=== PATIENT | male | born 1960 | race African-American/Black ===

== ENCOUNTER 2018-03-21 12:30 | Emergency (ER) | payer MEDICAID ==
[~2018-03-21] VITALS: Ht 188 cm; Wt 104.8 kg
[2018-03-21 12:43] VITALS: BP 143/97
[2018-03-21] MEDS ORDERED: ASPirin 81 mg TAB PO ONE (13:30)
[2018-03-21 14:43] LABS: Basophils # (auto) 0 uL; Mean Corpuscular Volume 92.6 fL (80.0-100.0); Monocytes # (auto) 0.6 uL
[2018-03-21 14:45] LABS: Basophils % (auto) 0.8 % (0.0-2.0); Eosinophils # (auto) 0.3 uL; Eosinophils % (auto) 5.6 % (0.0-7.0); Lymphocytes # (auto) 1.6 uL; Lymphocytes % (auto) 32.9 % (10.0-50.0); Mean Corpuscular Hemoglobin 29.4 pg (28.0-32.0); Mean Corpuscular Hgb Conc. 31.8 g/dL (32.0-36.0); Monocytes % (auto) 12.5 % (0.0-12.0); Neutrophils # (auto) 2.3 uL; Neutrophils % (auto) 48.2 % (37.0-80.0); Nucleated Red Blood Cells % 0.4 %; Platelet Count (auto) 153 10^3/uL (140-450); White Blood Cell 4.8 10^3/uL (4.4-10.8)
[2018-03-21 14:59] LABS: INR 0.99 (0.9-1.15); Prothrombin Time 10.6 sec (9.27-12.13)
[2018-03-21 15:18] LABS: Hematocrit 56.5 % (41.0-53.0)
[2018-03-21 16:45] LABS: Anion Gap 7 (5-15); Blood Urea Nitrogen 7 mg/dL (7-18); Carbon Dioxide 20 mmol/L (21-32); Chloride 108 mmol/L (98-107); Glucose 78 mg/dL (74-106); Potassium 4.3 mmol/L (3.5-5.1); Sodium 135 mmol/L (136-145)
[2018-03-21] MEDS ORDERED: IBUPROFEN 600 MG TAB PO ONE (16:45)
[2018-03-21 16:46] LABS: Alanine Aminotransferase 50 U/L (16-61); Alkaline Phosphatase 119 U/L (45-117); Aspartate Aminotransferase 38 U/L (15-37); BUN/Creatinine Ratio 7.1; Bilirubin, Total 0.3 mg/dL (0.2-1.0); Calcium 8.4 mg/dL (8.5-10.1); GFR African American 99 mL/min; GFR Non-African American 82 mL/min; Total Protein 7.7 g/dL (6.4-8.2)
[2018-03-21 16:47] LABS: Magnesium 2.1 mg/dL (1.6-2.6)
== END 2018-03-21 20:05 | disposition left against medical advice (07) ==
LOC: ER 12:30
DX: J20.9 Acute bronchitis, unspecified (principal); R07.9 Chest pain, unspecified; R79.89 Other specified abnormal findings of blood chemistry; I10 Essential (primary) hypertension; F17.210 Nicotine dependence, cigarettes, uncomplicated; Z53.29 Procedure and treatment not carried out because of patient's decision for other reasons
CPT/HCPCS: 36415; 71045; 80053; 83735; 83880; 84443; 84484; 85025; 85379; 85610; 85730; 93005; 94761

== ENCOUNTER 2018-04-04 12:07 | Emergency (ER) | payer MEDICAID ==
[~2018-04-04] VITALS: Ht 188 cm; Wt 104.8 kg
[2018-04-04 15:55] VITALS: BP 130/72
== END 2018-04-04 15:59 | disposition home or self-care (01) ==
LOC: ER 12:16
DX: K40.90 Unilateral inguinal hernia, without obstruction or gangrene, not specified as recurrent (principal); E78.5 Hyperlipidemia, unspecified; I10 Essential (primary) hypertension; F17.210 Nicotine dependence, cigarettes, uncomplicated; F12.90 Cannabis use, unspecified, uncomplicated; I25.2 Old myocardial infarction; Z86.73 Personal history of transient ischemic attack (TIA), and cerebral infarction without residual deficits
CPT/HCPCS: 76870; 93005

== ENCOUNTER 2018-05-31 15:41 | Emergency (ER) | payer MEDICAID ==
[~2018-05-31] VITALS: Ht 188 cm; Wt 103.4 kg
[2018-05-31 15:50] VITALS: BP 137/97
[2018-05-31 16:43] LABS: Mean Corpuscular Hemoglobin 29.4 pg (28.0-32.0); Mean Corpuscular Volume 90.1 fL (80.0-100.0); Monocytes # (auto) 0.4 uL; Red Cell Distribution Width 14.1 % (11.8-14.3); White Blood Cell 3.3 10^3/uL (4.4-10.8)
[2018-05-31 16:44] LABS: Basophils # (auto) 0.3 uL; Basophils % (auto) 8.4 % (0.0-2.0); Eosinophils # (auto) 0.2 uL; Eosinophils % (auto) 5.1 % (0.0-7.0); Hematocrit 54.3 % (41.0-53.0); Hemoglobin 17.7 g/dL (13.5-17.5); Lymphocytes # (auto) 1.5 uL; Lymphocytes % (auto) 44.5 % (10.0-50.0); Mean Corpuscular Hgb Conc. 32.7 g/dL (32.0-36.0); Nucleated Red Blood Cells % 0.7 %; Platelet Count (auto) 176 10^3/uL (140-450); Red Blood Cells 6.03 10^6/uL (4.5-5.90)
[2018-05-31 16:57] LABS: INR 1.06 (0.9-1.15); Partial Thromboplastin Time 31.2 sec (23.78-33.04); Prothrombin Time 11.3 sec (9.27-12.13)
== END 2018-06-01 01:24 | disposition home or self-care (01) ==
LOC: ER 15:41
DX: R07.89 Other chest pain (principal); E78.5 Hyperlipidemia, unspecified; I10 Essential (primary) hypertension; I25.2 Old myocardial infarction; I25.10 Atherosclerotic heart disease of native coronary artery without angina pectoris; F17.210 Nicotine dependence, cigarettes, uncomplicated; F12.10 Cannabis abuse, uncomplicated; Z88.1 Allergy status to other antibiotic agents
CPT/HCPCS: 36415; 71046; 84484; 85025; 85610; 85730; 93005

== ENCOUNTER 2018-06-21 02:44 | Emergency (ER) | payer MEDICAID ==
[~2018-06-21] VITALS: Ht 188 cm; Wt 103.4 kg
[2018-06-21 06:52] VITALS: BP 137/91
[2018-06-21] MEDS ORDERED: KETOROLAC TROMETH 60MG/2ML VIAL IM ONE (07:00)
[2018-06-21] MEDS ORDERED: METHOCARBAMOL 500 MG TAB PO ONE (07:00)
== END 2018-06-21 07:26 | disposition home or self-care (01) ==
LOC: ER 02:46
DX: M25.511 Pain in right shoulder (principal); I25.10 Atherosclerotic heart disease of native coronary artery without angina pectoris; J44.9 Chronic obstructive pulmonary disease, unspecified; E78.5 Hyperlipidemia, unspecified; I10 Essential (primary) hypertension; I25.2 Old myocardial infarction; F17.210 Nicotine dependence, cigarettes, uncomplicated; F12.90 Cannabis use, unspecified, uncomplicated; Z88.1 Allergy status to other antibiotic agents; Z88.5 Allergy status to narcotic agent; V83.5XXA Driver of special industrial vehicle injured in nontraffic accident, initial encounter; Y93.89 Activity, other specified; Y99.8 Other external cause status; Y92.89 Other specified places as the place of occurrence of the external cause
CPT/HCPCS: 70450; 71045; 71250; 72125; 73030; 73080; 73120; 74176; 93005; 96372; 99284; J1885

== ENCOUNTER 2018-08-02 09:09 | Emergency (ER) | payer MEDICAID ==
[~2018-08-02] VITALS: Ht 188 cm; Wt 99.8 kg
[2018-08-02 10:33] LABS: Basophils # (auto) 0 uL; Basophils % (auto) 0.2 % (0.0-2.0); Eosinophils # (auto) 0.1 uL; Eosinophils % (auto) 1.9 % (0.0-7.0); Hematocrit 51.6 % (41.0-53.0); Hemoglobin 17.1 g/dL (13.5-17.5); Lymphocytes # (auto) 1.2 uL; Mean Corpuscular Hemoglobin 29.7 pg (28.0-32.0); Mean Corpuscular Hgb Conc. 33.1 g/dL (32.0-36.0); Mean Corpuscular Volume 89.8 fL (80.0-100.0); Monocytes # (auto) 0.6 uL; Monocytes % (auto) 13.9 % (0.0-12.0); Neutrophils # (auto) 2.5 uL; Nucleated Red Blood Cells % 0.7 %; Platelet Count (auto) 189 10^3/uL (140-450); Red Blood Cells 5.75 10^6/uL (4.5-5.90); Red Cell Distribution Width 13.7 % (11.8-14.3); White Blood Cell 4.4 10^3/uL (4.4-10.8)
[2018-08-02 11:20] LABS: Anion Gap 9 (5-15); BUN/Creatinine Ratio 11.8; Blood Urea Nitrogen 12 mg/dL (7-18); Carbon Dioxide 22 mmol/L (21-32); Chloride 103 mmol/L (98-107); GFR African American 96 mL/min; GFR Non-African American 79 mL/min; Glucose 92 mg/dL (74-106); Potassium 3.7 mmol/L (3.5-5.1); Sodium 134 mmol/L (136-145)
[2018-08-02 11:21] LABS: Alanine Aminotransferase 43 U/L (16-61); Albumin 3.4 g/dL (3.4-5.0); Alkaline Phosphatase 97 U/L (45-117); Aspartate Aminotransferase 30 U/L (15-37); Bilirubin, Total 0.4 mg/dL (0.2-1.0); Calcium 8.8 mg/dL (8.5-10.1); Total Protein 8.1 g/dL (6.4-8.2)
[2018-08-02 15:39] VITALS: BP 121/73
== END 2018-08-02 15:46 | disposition home or self-care (01) ==
LOC: ER 09:09
DX: J40 Bronchitis, not specified as acute or chronic (principal); J44.9 Chronic obstructive pulmonary disease, unspecified; E78.5 Hyperlipidemia, unspecified; I10 Essential (primary) hypertension; I25.2 Old myocardial infarction; F17.210 Nicotine dependence, cigarettes, uncomplicated; F12.10 Cannabis abuse, uncomplicated; I25.10 Atherosclerotic heart disease of native coronary artery without angina pectoris
CPT/HCPCS: 36415; 71046; 80053; 84484; 85025; 93005

== ENCOUNTER 2018-09-23 04:22 | Emergency (ER) | payer MEDICAID, OTHER ==
[~2018-09-23] VITALS: Ht 188 cm; Wt 99.3 kg
[2018-09-23 08:07] LABS: Basophils # (auto) 0 uL; Basophils % (auto) 0.6 % (0.0-2.0); Eosinophils # (auto) 0.1 uL; Eosinophils % (auto) 2.7 % (0.0-7.0); Hematocrit 44.3 % (41.0-53.0); Hemoglobin 14.4 g/dL (13.5-17.5); Lymphocytes # (auto) 0.9 uL; Mean Corpuscular Hemoglobin 28.5 pg (28.0-32.0); Mean Corpuscular Hgb Conc. 32.4 g/dL (32.0-36.0); Mean Corpuscular Volume 87.9 fL (80.0-100.0); Monocytes # (auto) 0.5 uL; Neutrophils # (auto) 2.4 uL; Neutrophils % (auto) 60.7 % (37.0-80.0); Nucleated Red Blood Cells % 0.1 %; Platelet Count (auto) 216 10^3/uL (140-450); Red Blood Cells 5.05 10^6/uL (4.5-5.90); Red Cell Distribution Width 13.5 % (11.8-14.3); White Blood Cell 3.9 10^3/uL (4.4-10.8)
[2018-09-23] MEDS ORDERED: SODIUM CHLORIDE 0.9% 1,000 ML IV ONE ×2 (08:13)
[2018-09-23] MEDS ORDERED: cefTRIAXone 1GM/50ML D5W 50 ML IV ONE (08:15)
[2018-09-23] MEDS ORDERED: CLINDAMYCIN 900MG IV 50 ML IV ONE (08:15)
[2018-09-23] MEDS ORDERED: KETOROLAC TROMETH 30 MG/ML 1ML VIAL ONE (08:30)
[2018-09-23 09:31] VITALS: BP 155/95
== END 2018-09-23 09:48 | disposition short-term general hospital (02) ==
LOC: ER 04:26
DX: L02.413 Cutaneous abscess of right upper limb (principal); J44.9 Chronic obstructive pulmonary disease, unspecified; E78.5 Hyperlipidemia, unspecified; I10 Essential (primary) hypertension; I25.2 Old myocardial infarction; F17.210 Nicotine dependence, cigarettes, uncomplicated; F12.10 Cannabis abuse, uncomplicated; F15.10 Other stimulant abuse, uncomplicated; F11.10 Opioid abuse, uncomplicated; Z88.6 Allergy status to analgesic agent; Z88.1 Allergy status to other antibiotic agents
CPT/HCPCS: 36415; 71045; 73200; 83605; 85025; 87040; 96365; 96368; 99285; J0696; J1885; J3490

== ENCOUNTER 2018-11-16 16:22 | Inpatient (IN) | payer MEDICAID, OTHER | END 2018-11-18 14:39 | disposition left against medical advice (07) | LOC: TELE-CENTR 11-17 04:52 → ER 16:22 → TELE 16:23 | DX: A41.9 Sepsis, unspecified organism (principal); J96.00 Acute respiratory failure, unspecified whether with hypoxia or hypercapnia; J69.0 Pneumonitis due to inhalation of food and vomit; G93.41 Metabolic encephalopathy; I11.0 Hypertensive heart disease with heart failure; I50.9 Heart failure, unspecified; F19.10 Other psychoactive substance abuse, uncomplicated; E87.6 Hypokalemia; N39.0 Urinary tract infection, site not specified; E78.5 Hyperlipidemia, unspecified; I25.10 Atherosclerotic heart disease of native coronary artery without angina pectoris; J44.0 Chronic obstructive pulmonary disease with (acute) lower respiratory infection ==

== ENCOUNTER 2019-01-09 08:51 | Emergency (ER) | payer MEDICAID ==
[~2019-01-09] VITALS: Ht 188 cm; Wt 89.8 kg
[2019-01-09 10:00] LABS: Basophils # (auto) 0 uL; Eosinophils # (auto) 0.2 uL; Eosinophils % (auto) 6.7 % (0.0-7.0); Hematocrit 40.2 % (41.0-53.0); Hemoglobin 13.2 g/dL (13.5-17.5); Lymphocytes # (auto) 0.9 uL; Lymphocytes % (auto) 30.4 % (10.0-50.0); Mean Corpuscular Hemoglobin 28.6 pg (28.0-32.0); Mean Corpuscular Hgb Conc. 32.8 g/dL (32.0-36.0); Mean Corpuscular Volume 87.2 fL (80.0-100.0); Monocytes # (auto) 0.3 uL; Monocytes % (auto) 8.6 % (0.0-12.0); Neutrophils # (auto) 1.6 uL; Neutrophils % (auto) 53.3 % (37.0-80.0); Nucleated Red Blood Cells % 0.1 %; Platelet Count (auto) 185 10^3/uL (140-450); Red Blood Cells 4.61 10^6/uL (4.5-5.90); Red Cell Distribution Width 13.9 % (11.8-14.3)
[2019-01-09] MEDS ORDERED: ASPirin 81 mg TAB PO ONE (10:00)
[2019-01-09 10:20] LABS: INR 1.03 (0.9-1.15)
[2019-01-09 10:21] LABS: Alanine Aminotransferase 41 U/L (16-61); Albumin 3.2 g/dL (3.4-5.0); Alkaline Phosphatase 116 U/L (45-117); Anion Gap 6 (5-15); Aspartate Aminotransferase 30 U/L (15-37); BUN/Creatinine Ratio 12.6; Bilirubin, Total 0.3 mg/dL (0.2-1.0); Blood Urea Nitrogen 12 mg/dL (7-18); Calcium 8.2 mg/dL (8.5-10.1); Carbon Dioxide 28 mmol/L (21-32); Chloride 106 mmol/L (98-107); GFR African American 104 mL/min; GFR Non-African American 86 mL/min; Glucose 88 mg/dL (74-106); Potassium 3.8 mmol/L (3.5-5.1); Sodium 140 mmol/L (136-145); Total Protein 7.2 g/dL (6.4-8.2)
[2019-01-09 11:54] VITALS: BP 133/82
== END 2019-01-09 12:30 | disposition home or self-care (01) ==
LOC: ER 08:51
DX: R07.89 Other chest pain (principal); J40 Bronchitis, not specified as acute or chronic; I11.0 Hypertensive heart disease with heart failure; I50.9 Heart failure, unspecified; J44.9 Chronic obstructive pulmonary disease, unspecified; E78.5 Hyperlipidemia, unspecified; R42 Dizziness and giddiness; I25.2 Old myocardial infarction; Z87.891 Personal history of nicotine dependence; Z88.1 Allergy status to other antibiotic agents; Z88.6 Allergy status to analgesic agent
CPT/HCPCS: 36415; 71046; 80053; 84484; 85025; 85610; 85730; 93005; 94761

== ENCOUNTER 2019-02-01 17:01 | Inpatient (IN) | payer MEDICAID ==
[~2019-02-01] VITALS: Ht 188 cm; Wt 82.4 kg
[2019-02-01] MEDS ORDERED: SODIUM CHLORIDE 0.9% 1,000 ML IVB ONE (17:31)
[2019-02-01] MEDS ORDERED: ASPirin-EC 81 mg tab PO ONE (17:45)
[2019-02-01 18:00] LABS: Basophils # (auto) 0 uL; Basophils % (auto) 0.4 % (0.0-2.0); Eosinophils # (auto) 0 uL; Eosinophils % (auto) 0.1 % (0.0-7.0); Hematocrit 40.1 % (41.0-53.0); Lymphocytes # (auto) 0.9 uL; Lymphocytes % (auto) 8.8 % (10.0-50.0); Mean Corpuscular Hemoglobin 28.4 pg (28.0-32.0); Mean Corpuscular Hgb Conc. 32.5 g/dL (32.0-36.0); Mean Corpuscular Volume 87.4 fL (80.0-100.0); Monocytes # (auto) 0.8 uL; Monocytes % (auto) 7.2 % (0.0-12.0); Neutrophils # (auto) 8.9 uL; Neutrophils % (auto) 83.5 % (37.0-80.0); Platelet Count (auto) 279 10^3/uL (140-450); Red Blood Cells 4.58 10^6/uL (4.5-5.90); Red Cell Distribution Width 13.7 % (11.8-14.3); White Blood Cell 10.6 10^3/uL (4.4-10.8)
[2019-02-01 18:10] LABS: INR 1.21 (0.9-1.15); Partial Thromboplastin Time 36.7 sec (23.64-32.05)
[2019-02-01 18:17] LABS: Alanine Aminotransferase 31 U/L (16-61); Albumin 2.9 g/dL (3.4-5.0); Anion Gap 5 (5-15); BUN/Creatinine Ratio 11.7; Blood Urea Nitrogen 12 mg/dL (7-18); Calcium 8.1 mg/dL (8.5-10.1); Carbon Dioxide 28 mmol/L (21-32); Chloride 100 mmol/L (98-107); GFR African American 94 mL/min; GFR Non-African American 78 mL/min; Glucose 94 mg/dL (74-106); Potassium 3.7 mmol/L (3.5-5.1); Sodium 133 mmol/L (136-145)
[2019-02-01 18:21] LABS: Alkaline Phosphatase 109 U/L (45-117); Aspartate Aminotransferase 22 U/L (15-37); Bilirubin, Total 0.6 mg/dL (0.2-1.0); Total Protein 7.4 g/dL (6.4-8.2)
[2019-02-01 19:33] LABS: Urine Bacteria FEW /hpf (None Seen); Urine Blood Negative /uL (Negative); Urine Mucus FEW (None Seen); Urine Specific Gravity 1.019 (1.001-1.035); Urine WBC 26 /hpf (0 - 3)
[2019-02-01 19:56] LABS: Alcohol, Urine < 3.0 mg/dL (0-5); Amphetamine Screen, Urine POSITIVE (NEGATIVE); Barbiturate Scree,Urine NEGATIVE (NEGATIVE); Benzodiazephine Screen, Urine NEGATIVE (NEGATIVE); Cannabinoid Screen, Urine POSITIVE (NEGATIVE); Cocaine Screen, Urine POSITIVE (NEGATIVE)
[2019-02-01 20:04] LABS: Opiate Scree,Urine POSITIVE (NEGATIVE); Phencyclidine Screen, Urine NEGATIVE (NEGATIVE)
[2019-02-01] MEDS: FAMOTIDINE 20 MG TAB PO SCH (22:00)
[2019-02-01] MEDS: ATORVASTATIN 20 MG TAB PO SCH (22:00)
[2019-02-01] MEDS ORDERED: ACETAMINOPHEN 325 MG TAB PO PRN (22:00)
[2019-02-01] MEDS ORDERED: MORPHINE SULF INJ 2 MG/ML SYRINGE 1ML IV PRN (22:00)
[2019-02-01] MEDS: CARVEDILOL 3.125 MG TAB PO SCH (22:00)
[2019-02-01] MEDS ORDERED: ONDANSETRON HCL 4 MG/2 ML VIAL IV PRN (22:00)
[2019-02-01] MEDS ORDERED: TEMAZEPAM 15 MG CAP PO PRN (22:00)
[2019-02-01] MEDS ORDERED: NITROGLYCERIN 0.4 MG SL TAB SL PRN (22:00)
[2019-02-02 01:17] LABS: BUN/Creatinine Ratio 13.6; Calcium 8.2 mg/dL (8.5-10.1); Potassium 3.9 mmol/L (3.5-5.1)
--- NOTE | 2019-02-02 08:05 | NUR ---
PATIENT ARRIVED TO UNIT PATIENT ASLEEP AROUSABLE BY NAME BUT FALLS BACK ASLEEP. REFUSING TO ANSWER ALL QUESTIONS AT THIS TIME. PATIENT DOESN'T APPEAR TO BE IN ANY DISTRESS OR DISCOMFORT. VITAL SIGN WITHIN NORMAL LIMITS AT THIS TIME. BED IN LOWEST LOCKED POSITION CALL LIGHT WITHIN REACH WILL CONTINUE TO MONITOR
[2019-02-02 10:04] VITALS: BP 133/79
[2019-02-02 11:29] VITALS: BP 133/79
[2019-02-02] MEDS ORDERED: ADENOSINE 76 MG in GIVE UN-DILUTED 0 ML IV ONE (11:30)
[2019-02-02 13:00] VITALS: BP 141/80
[2019-02-02] MEDS: ASPirin 81 mg TAB PO SCH (13:51)
[2019-02-02] MEDS: LISINOPRIL 10 MG TAB PO SCH (13:52)
[2019-02-02] MEDS: FAMOTIDINE 20 MG TAB PO SCH ×2 (13:52→21:34)
[2019-02-02] MEDS: CARVEDILOL 3.125 MG TAB PO SCH ×2 (13:52→21:35)
--- NOTE | 2019-02-02 14:08 | NUR ---
[facility] SWAB SENT
--- NOTE | 2019-02-02 14:12 | NUR ---
PAGED TWICE REGARDING METHADONE MEDICATION. AWAITING RESPONSE
--- NOTE | 2019-02-02 14:48 | NUR ---
TELE PSYCH MD CALLED [facility]STILLO PATIENT CLEARED, DOES NOT NEED 51/50 HOLD BUT NEEDS OUTPATIENT DETOX PROGRAM ONCE DISCHARGED.
[2019-02-02 17:00] VITALS: BP 123/73
[2019-02-02] MEDS ORDERED: METHADONE HCL 10 MG TAB PO ONE (17:15)
--- NOTE | 2019-02-02 19:40 | NUR ---
RT NOTE RT SAW PT FOR ABG ORDER. PT REFUSED ABG. RT EXPLAINED THE IMPORTANCE OF THE ABG, PT STILL REFUSED. PT SPO2 ON RA IS 97%, CR 72, RR 16. NO DISTRESS NOTED BY RT. PT DOES STATE THEY HAVE BEEN FEELING SOB. WILLIAM MEDELLIN WAS ADVISED OF PTS REFUSAL.
[2019-02-02] MEDS: ENOXAPARIN SOD 40 MG/0.4 ML SYRINGE SC SCH (19:59)
[2019-02-02] MEDS: cefTRIAXone 1GM/50ML D5W 50 ML IV SCH (19:59)
--- NOTE | 2019-02-02 20:20 | NUR ---
RECEIVE IN BED NO VOICED COMPLAINTS NO SOB REFUSE ABG DRAW
[2019-02-02] MEDS: ATORVASTATIN 20 MG TAB PO SCH (21:34)
[2019-02-02 22:00] VITALS: BP 115/71
[2019-02-03 05:00] VITALS: BP 106/70
--- NOTE | 2019-02-03 06:43 | NUR ---
LT EJ SALINE LOCK DISLODGED IN BED ANGIOCATH TIP IS INTACT REFUSE LAB DRAW
[2019-02-03 09:00] VITALS: BP 125/75
[2019-02-03] MEDS: cefTRIAXone 1GM/50ML D5W 50 ML IV SCH (09:00)
[2019-02-03] MEDS ORDERED: METHADONE HCL 10 MG TAB PO SCH ×2 (10:00)
[2019-02-03] MEDS: METHADONE HCL 10 MG TAB PO SCH (10:12)
[2019-02-03] MEDS: ASPirin 81 mg TAB PO SCH (10:13)
[2019-02-03] MEDS: CARVEDILOL 3.125 MG TAB PO SCH ×2 (10:13→21:32)
[2019-02-03] MEDS: LISINOPRIL 10 MG TAB PO SCH (10:13)
[2019-02-03] MEDS: ENOXAPARIN SOD 40 MG/0.4 ML SYRINGE SC SCH (10:14)
[2019-02-03] MEDS: FAMOTIDINE 20 MG TAB PO SCH ×2 (10:14→21:32)
[2019-02-03 13:00] VITALS: BP 109/69
--- NOTE | 2019-02-03 13:19 | NUR ---
UNABLE TO OBTAIN NEW IV ACCESS PAGED FOR POSSIBLE MIDLINE INSERTION AWAITING RESPONSE
--- NOTE | 2019-02-03 15:30 | NUR ---
LAB CALLED TO VERIFY IF LABS WERE DRAWN. PER PATIENT SOME ONE CAME AND RADHA LABS. PER NIGHT NURSE AND LAB PATIENT REFUSED LABS.
--- NOTE | 2019-02-03 16:27 | NUR ---
assessment Per consult please provide patient to detox program/methadone clinic. Patient was not in his room at this time. I have left resources for [facility] methadone clinic, [facility] and other detox facilities on patients bedside table and notified patients bedside nurse Lucille THOMAS. Per Lucille she make sure patient gets resources. Addendum: 02/03/19 at 1629 by Aurora Carter Amended: Links added.
[2019-02-03 17:00] VITALS: BP 143/84
--- NOTE | 2019-02-03 17:00 | NUR ---
PATIENT RECEIVED INFORMATION ON DETOX PROGRAM
[2019-02-03] MEDS ORDERED: CLOPIDOGREL 300 MG TAB PO ONE (17:30)
[2019-02-03 17:59] LABS: Basophils # (auto) 0 uL; Basophils % (auto) 1.2 % (0.0-2.0); Eosinophils # (auto) 0.1 uL; Eosinophils % (auto) 5.9 % (0.0-7.0); Hematocrit 44.2 % (41.0-53.0); Hemoglobin 13.9 g/dL (13.5-17.5); Lymphocytes # (auto) 0.9 uL; Mean Corpuscular Hgb Conc. 31.5 g/dL (32.0-36.0); Mean Corpuscular Volume 89.1 fL (80.0-100.0); Monocytes # (auto) 0.3 uL; Monocytes % (auto) 12.2 % (0.0-12.0); Neutrophils # (auto) 1.2 uL; Neutrophils % (auto) 46.7 % (37.0-80.0); Nucleated Red Blood Cells % 0.4 %; Platelet Count (auto) 255 10^3/uL (140-450); Red Blood Cells 4.96 10^6/uL (4.5-5.90); Red Cell Distribution Width 13.9 % (11.8-14.3); White Blood Cell 2.5 10^3/uL (4.4-10.8)
[2019-02-03 18:09] LABS: Calcium 9.2 mg/dL (8.5-10.1); Potassium 4.5 mmol/L (3.5-5.1)
[2019-02-03 18:22] LABS: BUN/Creatinine Ratio 17.8
--- NOTE | 2019-02-03 19:13 | NUR ---
Opening Shift Note Assumed care of patient, awake and alert. No S/S of distress/SOB or pain. Instructed on POC and to call for assist PRN, will continue to monitor for changes Q1hr and PRN. Side rails up x2. Bed locked in lowest position. Call light within reach.
[2019-02-03] MEDS: ATORVASTATIN 20 MG TAB PO SCH (21:32)
[2019-02-03 22:23] VITALS: BP 119/74
[2019-02-04 05:20] VITALS: BP 108/70
--- NOTE | 2019-02-04 07:30 | NUR ---
Opening Shift Note Assumed care of patient, resting comfortably. No S/S of distress/SOB or pain on room air. Instructed on POC and to call for assist PRN, will continue to monitor for changes Q1hr and PRN. Bed in low and locked position, rails up x2, no-slip socks on.
[2019-02-04 09:00] VITALS: BP 93/58
[2019-02-04] MEDS: cefTRIAXone 1GM/50ML D5W 50 ML IV SCH (09:26)
[2019-02-04] MEDS: METHADONE HCL 10 MG TAB PO SCH (09:27)
[2019-02-04] MEDS: CLOPIDOGREL BISULFATE 75 MG TAB PO SCH (09:27)
[2019-02-04] MEDS: FAMOTIDINE 20 MG TAB PO SCH ×2 (09:28→22:01)
[2019-02-04] MEDS: ASPirin 81 mg TAB PO SCH (09:28)
[2019-02-04] MEDS: CARVEDILOL 3.125 MG TAB PO SCH ×2 (09:32→22:04)
[2019-02-04] MEDS: LISINOPRIL 10 MG TAB PO SCH (09:33)
[2019-02-04] MEDS: ENOXAPARIN SOD 40 MG/0.4 ML SYRINGE SC SCH (09:38)
--- NOTE | 2019-02-04 11:08 | NUR ---
DR AGUSTIN AT BEDSIDE NO NEW ORDERS, DR AGUSTIN CALLED DR MASCORRO TO CONFIRM POSITIVE STRESS REPORT AND INQUIRE WHETHER PATIENT WOULD BE PLACED ON SCHEDULE FOR SUPERVISOR MULTIFOCAL LENS ON WEDNESDAY. AWAITING CONFIRMATION, ALL RESULTS EXPLAINED TO PATIENT AND PATIENT VERBALIZES UNDERSTANDING.
[2019-02-04 13:00] VITALS: BP 118/71
[2019-02-04 17:00] VITALS: BP 109/78
--- NOTE | 2019-02-04 17:27 | NUR ---
Midline Placement: Patient educated on need for midline placement. All risks and benefits explained and all questions and concerns addresses prior to procedure. 4Fr 20cm cm midline inserted via left basilic vein using Ultrasound. Sterile technique utilized. Blood return obtained from the single lumen and flushed easily with NS using proper technique. Midline secured with saline lock; biodisc and occlusive dressing applied. Primary RN notified. Midline lot #[id number] INTERNAL LENGTH 20CM EXTERNAL LENGTH 0CM
--- NOTE | 2019-02-04 17:30 | NUR ---
CALL TO RADIOLOGY TO NOTIFY THAT MIDLINE HAS BEEN PLACED. INFORMED PATIENT TO REMAIN NPO FOR CT CHEST, PATIENT VERBALIZES UNDERSTANDING.
--- NOTE | 2019-02-04 18:30 | NUR ---
PATIENT ATE DINNER PATIENT UP AT NURSES STATION AND STATED HE ATE HIS DINNER AND ASKED IF THEY WERE STILL DOING THE TEST. STATED THAT HE NEEDED TO BE WITHOUT FOOD OR WATER FOR THE TEST, INFORMED TO REMAIN NPO AGAIN AND WILL NOTIFY RADIOLOGY.
[2019-02-04] MEDS ORDERED: IOHEXOL 350 MG/ML 100ML IJ ONE (18:41)
[2019-02-04 21:48] VITALS: BP 119/77
[2019-02-04] MEDS: ATORVASTATIN 20 MG TAB PO SCH (22:01)
--- NOTE | 2019-02-04 23:13 | NUR ---
Patient went AMA to smoke.
--- NOTE | 2019-02-04 23:30 | NUR ---
Patient back in room in stable condition.
[2019-02-05 05:41] VITALS: BP 103/50
[2019-02-05 05:59] LABS: Basophils # (auto) 0 uL; Eosinophils # (auto) 0.3 uL; Eosinophils % (auto) 13.6 % (0.0-7.0); Hematocrit 40.2 % (41.0-53.0); Hemoglobin 13.2 g/dL (13.5-17.5); Lymphocytes # (auto) 0.9 uL; Mean Corpuscular Hemoglobin 28.3 pg (28.0-32.0); Mean Corpuscular Hgb Conc. 32.9 g/dL (32.0-36.0); Mean Corpuscular Volume 86.2 fL (80.0-100.0); Monocytes # (auto) 0.3 uL; Monocytes % (auto) 10.9 % (0.0-12.0); Neutrophils # (auto) 0.9 uL; Neutrophils % (auto) 35.5 % (37.0-80.0); Nucleated Red Blood Cells % 0.1 %; Platelet Count (auto) 245 10^3/uL (140-450); Red Blood Cells 4.66 10^6/uL (4.5-5.90); Red Cell Distribution Width 13.3 % (11.8-14.3); White Blood Cell 2.4 10^3/uL (4.4-10.8)
[2019-02-05 06:17] LABS: Anion Gap 5 (5-15); BUN/Creatinine Ratio 16.9; Blood Urea Nitrogen 15 mg/dL (7-18); Calcium 8.5 mg/dL (8.5-10.1); Carbon Dioxide 27 mmol/L (21-32); Chloride 102 mmol/L (98-107); GFR African American 112 mL/min; GFR Non-African American 92 mL/min; Glucose 89 mg/dL (74-106); Sodium 134 mmol/L (136-145)
--- NOTE | 2019-02-05 08:00 | NUR ---
Opening Shift Note Assumed care of patient, awake and alert. No S/S of distress/SOB or pain. Instructed on POC and to call for assist PRN, will continue to monitor for changes Q1hr and PRN.
[2019-02-05 09:00] VITALS: BP 110/57
[2019-02-05] MEDS: cefTRIAXone 1GM/50ML D5W 50 ML IV SCH (10:01)
[2019-02-05] MEDS: ENOXAPARIN SOD 40 MG/0.4 ML SYRINGE SC SCH (10:01)
[2019-02-05] MEDS: LISINOPRIL 10 MG TAB PO SCH (10:02)
[2019-02-05] MEDS: CARVEDILOL 3.125 MG TAB PO SCH ×2 (10:02→21:55)
[2019-02-05] MEDS: FAMOTIDINE 20 MG TAB PO SCH ×2 (10:02→21:56)
[2019-02-05] MEDS: CLOPIDOGREL BISULFATE 75 MG TAB PO SCH (10:03)
[2019-02-05] MEDS: ASPirin 81 mg TAB PO SCH (10:03)
[2019-02-05] MEDS: METHADONE HCL 10 MG TAB PO SCH (10:03)
[2019-02-05 13:00] VITALS: BP 115/72
[2019-02-05] MEDS ORDERED: VANCOMYCIN PER PHARMACY 0 MG IV SCH (13:00)
--- NOTE | 2019-02-05 13:00 | NUR ---
Out of bed. AMA to smoke.
[2019-02-05] MEDS ORDERED: VANCOMYCIN 1GM/250ML 250 ML IV ONE (13:15)
--- NOTE | 2019-02-05 13:15 | NUR ---
Patient back to room.
[2019-02-05 17:00] VITALS: BP 100/68
--- NOTE | 2019-02-05 18:02 | NUR ---
Patient is for right and left heart catheterization tomorrow. Patient agreed to the procedure, will sign the consents after talking to the consulting engineer. Continue care.
--- NOTE | 2019-02-05 19:15 | NUR ---
RECEIVED PATIENT FROM DAY SHIFT RN. PATIENT SITTING AT THE SIDE OF THE BED. FAMILY AT BEDSIDE. C/O A LITTLE PAIN BUT TOLERABLE. PATIENT UNDERSTOOD THAT HE COULD REQUEST FOR PAIN MEDICATION IF CHEST PAIN NOT TOLERATED. REINFORCED NPO AFTER MIDNIGHT FOR PROCEDURE TOMORROW. PATIENT VERBALIZED UNDERSTANDING. WRITTEN INSTRUCTION ABOUT THE PROCEDURE GIVEN AND EXPLANTED TO PATIENT AND FAMILY. POC INSTRUCTED AND ENCOURAGED PATIENT TO CALL FOR OUTPATIENT SERVICES DIRECTOR IF NEEDED. BED IN LOWEST POSITION WITH SIDE RAILS UP X 2. CALL ROSALES WITHIN REACH. ALARM ON. CONTINUE TO MONITOR FOR CHANGES Q1H AND PRN.
--- NOTE | 2019-02-05 20:00 | NUR ---
PATIENT OFF FLOOR TO SMOKE
--- NOTE | 2019-02-05 20:29 | NUR ---
PATIENT BACK TO FLOOR. NO S/S OF DISTRESS NOTED. CONTINUE CARE.
[2019-02-05] MEDS: VANCOMYCIN 1GM/250ML 250 ML IV SCH (21:55)
[2019-02-05] MEDS: ATORVASTATIN 20 MG TAB PO SCH (21:55)
[2019-02-05 22:00] VITALS: BP 119/81
--- NOTE | 2019-02-05 22:00 | NUR ---
PATIENT OFF FLOOR TO SMOKE.
--- NOTE | 2019-02-05 22:15 | NUR ---
PATIENT BACK TO FLOOR. NO S/S OF DISTRESS NOTED. FAMILY GONNA LEAVE SINCE SHE IS WAITING FOR A RIDE. CONTINUE CARE.
--- NOTE | 2019-02-06 00:09 | NUR ---
REINFORCED NPO FROM NOW ON. PATIENT VERBALIZED UNDERSTANDING. FOOD AND DRINK REMOVED FROM BEDSIDE. CONTINUE TO MONITOR.
--- NOTE | 2019-02-06 03:51 | NUR ---
PATIENT SLEEPING. NO S/S OF DISTRESS NOTED. CONTINUE TO MONITOR.
[2019-02-06 05:00] VITALS: BP 109/59
--- NOTE | 2019-02-06 06:14 | NUR ---
BLOOD SAMPLE RADHA FROM MIDLINE. PATIENT TOLERATED WELL. CONTINUE TO MONITOR.
[2019-02-06 06:49] LABS: Hematocrit 38.7 % (41.0-53.0); Mean Corpuscular Hgb Conc. 33.6 g/dL (32.0-36.0); Mean Corpuscular Volume 86.3 fL (80.0-100.0); Platelet Count (auto) 229 10^3/uL (140-450); Red Blood Cells 4.49 10^6/uL (4.5-5.90); Red Cell Distribution Width 13.4 % (11.8-14.3); White Blood Cell 2.4 10^3/uL (4.4-10.8)
[2019-02-06 06:58] LABS: BUN/Creatinine Ratio 15.3; Calcium 8.3 mg/dL (8.5-10.1); Potassium 4.3 mmol/L (3.5-5.1)
[2019-02-06 06:59] LABS: Band Neutrophils % (manual) 0; Basophils % (manual) 0 (0.0-2.0); Blast Cells 0; Metamyelocytes % 0; Myelocytes % 0; Promyelocytes % 0; Reactive Lymphocytes 0
--- NOTE | 2019-02-06 07:00 | NUR ---
Opening Shift Note Assumed care of patient, awake and alert. No S/S of distress/SOB or pain. Safety measures in place bed in lowest position, side rails x2 up, call light within reach. Instructed on POC and to call for assist PRN, will continue to monitor for changes Q1hr and PRN.
[2019-02-06 07:43] LABS: Eosinophils % (manual) 19 (0-7); Lymphocytes % (manual) 39 (10.0-50.0); Monocytes % (manual) 10 (0-12)
[2019-02-06 09:00] VITALS: BP 105/56
[2019-02-06] MEDS: cefTRIAXone 1GM/50ML D5W 50 ML IV SCH (09:18)
[2019-02-06] MEDS: LISINOPRIL 10 MG TAB PO SCH (10:00)
[2019-02-06] MEDS: METHADONE HCL 10 MG TAB PO SCH ×2 (10:00→16:50)
[2019-02-06] MEDS: ENOXAPARIN SOD 40 MG/0.4 ML SYRINGE SC SCH (10:00)
[2019-02-06] MEDS: CARVEDILOL 3.125 MG TAB PO SCH ×2 (10:00→22:45)
[2019-02-06] MEDS: VANCOMYCIN 1GM/250ML 250 ML IV SCH (10:09)
[2019-02-06] MEDS: ASPirin 81 mg TAB PO SCH (10:10)
[2019-02-06] MEDS: FAMOTIDINE 20 MG TAB PO SCH ×2 (10:11→22:46)
[2019-02-06] MEDS: CLOPIDOGREL BISULFATE 75 MG TAB PO SCH (10:12)
[2019-02-06] MEDS ORDERED: IOHEXOL 350 MG/ML 100ML IJ ONE (12:55)
[2019-02-06] MEDS ORDERED: LIDOCAINE 2%HCL (LOCAL ANESTH.) INJ 20ML MDV ONE (12:55)
[2019-02-06] MEDS ORDERED: ANGIOMAX 250 MG VIAL IV ONE (12:58)
[2019-02-06] MEDS ORDERED: fentaNYL CITRATE 100 MCG/2 ML VL ONE (12:58)
[2019-02-06] MEDS ORDERED: MIDAZOLAM HCL 1MG/1ML-2 ML VIAL ONE (12:59)
[2019-02-06] MEDS ORDERED: SODIUM CHL 0.9% 0 ML ONE (12:59)
[2019-02-06 13:00] VITALS: BP 105/65
[2019-02-06 14:40] VITALS: BP 117/61
[2019-02-06] MEDS: DOXYCYCLINE 100 MG TAB/CAP PO SCH ×2 (16:15→22:46)
--- NOTE | 2019-02-06 16:30 | NUR ---
Opening Shift Note: A&Ox4, resting in bed. Room air, pain level 6/10, and at baseline ambulates independently with a cane prn; currently SBA. Bed locked in lowest position, side rails up x2, and call light within reach. AMA signed in patient hard chart to smoke. IV left upper arm midline IID inserted on 02/04/19 and IV 22 g in right upper arm IID inserted on 02/03/19. Skin intact. Patient is s/p LHC with Dr. Brown 02/06/19 with no stent placement. Right groin: 4x4 with tegaderm CDI without signs of drainage. POC discussed and questions answered. Will continue to round prn.
[2019-02-06 17:00] VITALS: BP 115/70
[2019-02-06 22:00] VITALS: BP 103/61
[2019-02-06] MEDS: ATORVASTATIN 20 MG TAB PO SCH (22:45)
[2019-02-07 05:44] VITALS: BP 120/68
[2019-02-07 08:00] VITALS: BP 104/61
[2019-02-07 09:55] VITALS: BP 104/61
[2019-02-07] MEDS: LISINOPRIL 10 MG TAB PO SCH (10:00)
[2019-02-07] MEDS: CARVEDILOL 3.125 MG TAB PO SCH (10:00)
[2019-02-07] MEDS: FAMOTIDINE 20 MG TAB PO SCH (11:02)
[2019-02-07] MEDS: DOXYCYCLINE 100 MG TAB/CAP PO SCH (11:03)
[2019-02-07] MEDS: ENOXAPARIN SOD 40 MG/0.4 ML SYRINGE SC SCH (11:04)
[2019-02-07] MEDS ORDERED: FAM20T PO (11:54)
[2019-02-07] MEDS ORDERED: LISI10TA6 PO (11:54)
[2019-02-07] MEDS ORDERED: ATOR20TA50 PO (11:54)
[2019-02-07] MEDS ORDERED: DOX100T PO ×2 (11:54→11:55)
[2019-02-07] MEDS ORDERED: ACE325T PO ×2 (11:54→11:58)
[2019-02-07 12:00] VITALS: BP 109/71
--- NOTE | 2019-02-07 14:59 | NUR ---
Assessment Pt is a 59 yr old alert and oriented male. Prior to admit, pt was living in a motel but had just checked out and was planning on living in his car. Pt stated that his car has since been repossessed with his cell phone in it, while he has been in the hospital so he is currently homeless. Prior to admit, pt uses a cane to ambulate and was independent with adl's, cooking, and cleaning. Pt admitted with SOB, chest pains and complications from COPD. Pt receives $841 monthly from disability income. Pt stated that he does not have an advanced directive. Pt stated that he is not sure of where he is going when he leaves that hospital or how he is going to get there. SW informed pt that the hospital can provide a taxi voucher, if needed, if pt has no transportation. DIMA educated pt about the options of room and board/ board and care options. Pt stated that he is interested in that information and any more homeless info that can be given. DIMA referred ANJEL Rosen to the pt to discuss homeless options and to give information. Addendum: 02/07/19 at 1521 by YURY MATA SS Amended: Links added.
--- NOTE | 2019-02-07 16:24 | NUR ---
Received Senior Accounting Clerk consult to see pt as he does not have a permanent place to stay. Pt states he was not homeless two weeks ago. However at this time he is. Pt has been staying at a motel and paying for it himself. Pt is requesting motel vouchers. Informed pt that we do not give vouchers anymore. Pt states he earns $ 840.00 from SSI. He has a mom but apparently they have issues. Gave packet of resources and requested that pt look over the packet.
--- NOTE | 2019-02-07 16:30 | NUR ---
Called Alyx THOMAS to inform her that pt is on oxygen. However, Alyx THOMAS states he is not on oxygen and has not been on it since has been here.
== END 2019-02-07 18:46 | disposition home or self-care (01) | DRG 137 ==
LOC: ER 17:01 → EDBD 17:01 → TELE 17:02 → TELE-EAST 02-02 08:08
PROVIDERS: ADMIT Nurse Practitioner; ATTEND Internal Medicine Nephrology
PROC: 4A023N7 Measurement of Cardiac Sampling and Pressure, Left Heart, Percutaneous Approach (ICD-10-PCS; principal; 2019-02-06)
PROC: B2111ZZ Fluoroscopy of Multiple Coronary Arteries using Low Osmolar Contrast (ICD-10-PCS; 2019-02-06)
PROC: B2151ZZ Fluoroscopy of Left Heart using Low Osmolar Contrast (ICD-10-PCS; 2019-02-06)
DX: J15.6 Pneumonia due to other Gram-negative bacteria (principal); J96.01 Acute respiratory failure with hypoxia; I11.0 Hypertensive heart disease with heart failure; R65.10 Systemic inflammatory response syndrome (SIRS) of non-infectious origin without acute organ dysfunction; I50.22 Chronic systolic (congestive) heart failure; E87.1 Hypo-osmolality and hyponatremia; I42.0 Dilated cardiomyopathy; I25.110 Atherosclerotic heart disease of native coronary artery with unstable angina pectoris; I42.7 Cardiomyopathy due to drug and external agent; J44.0 Chronic obstructive pulmonary disease with (acute) lower respiratory infection; N39.0 Urinary tract infection, site not specified; F17.210 Nicotine dependence, cigarettes, uncomplicated; E78.5 Hyperlipidemia, unspecified; T40.605A Adverse effect of unspecified narcotics, initial encounter; F11.10 Opioid abuse, uncomplicated; F19.239 Other psychoactive substance dependence with withdrawal, unspecified; Z88.1 Allergy status to other antibiotic agents; Z88.5 Allergy status to narcotic agent; Z79.82 Long term (current) use of aspirin; Z91.19 Patient's noncompliance with other medical treatment and regimen; I25.2 Old myocardial infarction; Z79.899 Other long term (current) drug therapy; Y92.89 Other specified places as the place of occurrence of the external cause
CPT/HCPCS: 36415; 36600; 71045; 71275; 78452; 80048; 80053; 80202; 80307; 81001; 82805; 83735; 83880; 84443; 84484; 85007; 85025; 85027; 85379; 85610; 85730; 87040; 87081; 87086; 87804; 93005; 93017; 93458; 93970; 96365; 96367; 96372; G0378; J0153; J0696; J2250

== ENCOUNTER 2019-02-09 18:04 | Emergency (ER) | payer MEDICAID ==
[~2019-02-09] VITALS: Ht 188 cm; Wt 85.3 kg
[~2019-02-09 18:04] MED LIST: ACE325T PO; ATOR20TA50 PO; DOX100T PO; FAM20T PO; LISI10TA6 PO
[2019-02-09] MEDS ORDERED: MORPHINE SULFATE 10 MG/ML INJ 1ML SDV IM ONE (19:15)
[2019-02-09] MEDS ORDERED: ONDANSETRON ODT 4 MG TAB PO ONE (19:15)
[2019-02-09 20:15] VITALS: BP 112/79
== END 2019-02-09 20:22 | disposition home or self-care (01) ==
LOC: EDBD 18:04 → ER 18:06
DX: S33.5XXA Sprain of ligaments of lumbar spine, initial encounter (principal); J44.9 Chronic obstructive pulmonary disease, unspecified; E78.00 Pure hypercholesterolemia, unspecified; I10 Essential (primary) hypertension; I25.2 Old myocardial infarction; I25.10 Atherosclerotic heart disease of native coronary artery without angina pectoris; Z87.891 Personal history of nicotine dependence; Z88.1 Allergy status to other antibiotic agents; Z88.5 Allergy status to narcotic agent; Z79.2 Long term (current) use of antibiotics; Z79.899 Other long term (current) drug therapy; V49.9XXA Car occupant (driver) (passenger) injured in unspecified traffic accident, initial encounter; Y93.89 Activity, other specified; Y92.89 Other specified places as the place of occurrence of the external cause; Y99.8 Other external cause status
CPT/HCPCS: 72070; 72100; 72170; 96372; 99283; J2270; Q0162

== ENCOUNTER 2019-03-04 05:07 | Emergency (ER) | payer MEDICAID ==
[~2019-03-04] VITALS: Ht 182.9 cm; Wt 77.1 kg
[2019-03-04] MEDS ORDERED: AMMONIA 0.33 ML INHALANT IN ONE (06:52)
[2019-03-04 07:48] LABS: Basophils # (auto) 0 uL; Basophils % (auto) 0.5 % (0.0-2.0); Eosinophils # (auto) 0.2 uL; Eosinophils % (auto) 9.1 % (0.0-7.0); Hematocrit 41.2 % (41.0-53.0); Hemoglobin 13.5 g/dL (13.5-17.5); Lymphocytes # (auto) 0.7 uL; Mean Corpuscular Hemoglobin 28.6 pg (28.0-32.0); Mean Corpuscular Hgb Conc. 32.8 g/dL (32.0-36.0); Mean Corpuscular Volume 87.1 fL (80.0-100.0); Monocytes # (auto) 0.3 uL; Monocytes % (auto) 12.4 % (0.0-12.0); Nucleated Red Blood Cells % 0.5 %; Platelet Count (auto) 161 10^3/uL (140-450); Red Blood Cells 4.73 10^6/uL (4.5-5.90); Red Cell Distribution Width 14.9 % (11.8-14.3); White Blood Cell 2.2 10^3/uL (4.4-10.8)
[2019-03-04 08:09] LABS: Albumin 3.2 g/dL (3.4-5.0); Anion Gap 5 (5-15); Blood Alcohol < 3.0 mg/dL (0-5); Blood Urea Nitrogen 12 mg/dL (7-18); Calcium 8.7 mg/dL (8.5-10.1); Carbon Dioxide 28 mmol/L (21-32); Chloride 108 mmol/L (98-107); Glucose 101 mg/dL (74-106); Magnesium 2.2 mg/dL (1.6-2.6); Potassium 3.9 mmol/L (3.5-5.1); Sodium 141 mmol/L (136-145)
[2019-03-04 08:10] LABS: Salicylate < 1.7 mg/dL (2.8-20.0)
[2019-03-04 08:11] LABS: Acetaminophen < 2.0 ug/mL (10-30); Alanine Aminotransferase 73 U/L (16-61); Aspartate Aminotransferase 42 U/L (15-37); BUN/Creatinine Ratio 12.9; GFR African American 106 mL/min; GFR Non-African American 88 mL/min
[2019-03-04 08:13] LABS: Alkaline Phosphatase 114 U/L (45-117); Bilirubin, Total 0.4 mg/dL (0.2-1.0); Total Protein 7.5 g/dL (6.4-8.2)
[2019-03-04] MEDS ORDERED: THIAMINE 100mg/ml INJ (200mg/2ml VIAL) IV ONE (11:45)
[2019-03-04] MEDS ORDERED: SODIUM CHLORIDE 0.9% 1,000 ML IV ONE (11:45)
[2019-03-04 16:52] LABS: Amphetamine Screen, Urine POSITIVE (NEGATIVE); Barbiturate Scree,Urine NEGATIVE (NEGATIVE); Benzodiazephine Screen, Urine POSITIVE (NEGATIVE); Cannabinoid Screen, Urine POSITIVE (NEGATIVE); Cocaine Screen, Urine NEGATIVE (NEGATIVE); Opiate Scree,Urine POSITIVE (NEGATIVE); Phencyclidine Screen, Urine NEGATIVE (NEGATIVE)
[2019-03-04 20:00] VITALS: BP 148/95
[2019-03-04] MEDS ORDERED: OCTREOTIDE ACETATE 500 MCG/ML VL ONE (23:21)
== END 2019-03-04 20:44 | disposition home or self-care (01) ==
LOC: ER 05:07
DX: R41.82 Altered mental status, unspecified (principal); F12.10 Cannabis abuse, uncomplicated; F15.10 Other stimulant abuse, uncomplicated; F11.10 Opioid abuse, uncomplicated; F10.10 Alcohol abuse, uncomplicated; Z87.891 Personal history of nicotine dependence; J44.9 Chronic obstructive pulmonary disease, unspecified; E78.5 Hyperlipidemia, unspecified; I10 Essential (primary) hypertension; I25.2 Old myocardial infarction; Z88.1 Allergy status to other antibiotic agents; Z88.6 Allergy status to analgesic agent; Z79.899 Other long term (current) drug therapy
CPT/HCPCS: 36415; 80053; 80307; 80320; 80329; 83735; 83880; 85025; 96361; 96374; 99283; J3411

== ENCOUNTER 2019-03-25 16:08 | Inpatient (IN) | payer MEDICAID ==
[~2019-03-25] VITALS: Ht 188 cm; Wt 78.8 kg
[2019-03-25 18:05] LABS: Basophils # (auto) 0 uL; Basophils % (auto) 0.2 % (0.0-2.0); Eosinophils # (auto) 0 uL; Eosinophils % (auto) 0.2 % (0.0-7.0); Hemoglobin 14.9 g/dL (13.5-17.5); Lymphocytes % (auto) 8.5 % (10.0-50.0); Mean Corpuscular Hemoglobin 28.4 pg (28.0-32.0); Mean Corpuscular Hgb Conc. 31.7 g/dL (32.0-36.0); Mean Corpuscular Volume 89.4 fL (80.0-100.0); Monocytes # (auto) 0.5 uL; Monocytes % (auto) 4.7 % (0.0-12.0); Neutrophils # (auto) 9.9 uL; Neutrophils % (auto) 86.4 % (37.0-80.0); Nucleated Red Blood Cells % 0.1 %; Platelet Count (auto) 238 10^3/uL (140-450); Red Blood Cells 5.25 10^6/uL (4.5-5.90); Red Cell Distribution Width 15.9 % (11.8-14.3); White Blood Cell 11.5 10^3/uL (4.4-10.8)
[2019-03-25 22:37] LABS: Albumin 2.7 g/dL (3.4-5.0); Anion Gap 4 (5-15); Blood Urea Nitrogen 15 mg/dL (7-18); Calcium 8.9 mg/dL (8.5-10.1); Carbon Dioxide 25 mmol/L (21-32); Chloride 103 mmol/L (98-107); Glucose 89 mg/dL (74-106); Potassium 4.1 mmol/L (3.5-5.1); Sodium 132 mmol/L (136-145)
[2019-03-25 22:43] LABS: Alanine Aminotransferase 42 U/L (16-61); Alkaline Phosphatase 95 U/L (45-117); Aspartate Aminotransferase 21 U/L (15-37); BUN/Creatinine Ratio 15.2; Bilirubin, Total 0.6 mg/dL (0.2-1.0); GFR African American 99 mL/min; GFR Non-African American 82 mL/min; Total Protein 7.5 g/dL (6.4-8.2)
[2019-03-26] MEDS ORDERED: ACETAMINOPHEN 325 MG TAB PO ONE (04:45)
[2019-03-26] MEDS ORDERED: LEVOFLOXACIN 500MG 100 ML IV ONE (04:45)
[2019-03-26] MEDS ORDERED: SODIUM CHLORIDE 0.9% 1,000 ML IV ONE ×2 (04:45→06:00)
[2019-03-26] MEDS ORDERED: IPRATROPIUM BROM 0.5 MG/2.5ML INH SOL NEB ONE (05:15)
[2019-03-26] MEDS ORDERED: ALBUTEROL SULF 2.5 MG/0.5ML(0.5%) NEB SOLN NEB ONE (05:15)
[2019-03-26] MEDS ORDERED: methylPREDNISolone SOD SUCC 125 MG/2 ML VL IV ONE (05:30)
[2019-03-26] MEDS ORDERED: SODIUM CHLORIDE 0.9% 1,000 ML IV SCH ×2 (06:03→07:00)
[2019-03-26] MEDS ORDERED: IPRATROPIUM BROM 0.5 MG/2.5ML INH SOL NEB PRN (06:15)
[2019-03-26] MEDS ORDERED: ACETAMINOPHEN 325 MG TAB PO PRN (06:15)
[2019-03-26] MEDS ORDERED: NITROGLYCERIN 0.4 MG SL TAB SL PRN (06:15)
[2019-03-26] MEDS ORDERED: MORPHINE SULF INJ 2 MG/ML SYRINGE 1ML IV PRN (06:15)
[2019-03-26] MEDS ORDERED: ALBUTEROL SULF 2.5 MG/0.5ML(0.5%) NEB SOLN NEB PRN (06:15)
[2019-03-26] MEDS ORDERED: DOCUSATE SOD 100 MG CAP PO PRN (06:15)
[2019-03-26] MEDS ORDERED: ONDANSETRON HCL 4 MG/2 ML VIAL IV PRN (06:15)
[2019-03-26 10:21] VITALS: BP 125/81
[2019-03-26] MEDS: HYDROcodone-ACET 5/325MG TAB PO PRN ×2 (12:04→17:56)
[2019-03-26] MEDS: LEVOFLOXACIN 750MG 150 ML IV SCH (12:04)
[2019-03-26 12:15] VITALS: BP 108/72
[2019-03-26 13:00] VITALS: BP 108/68
[2019-03-26] MEDS: methylPREDNISolone SOD SUCC 40 MG/ML VL IV SCH ×2 (14:00→21:15)
[2019-03-26] MEDS: SODIUM CHLORIDE 0.9% 1,000 ML IV SCH (15:45)
[2019-03-26 17:00] VITALS: BP 135/84
[2019-03-26 22:00] VITALS: BP 115/61
[2019-03-27] MEDS: methylPREDNISolone SOD SUCC 40 MG/ML VL IV SCH ×3 (05:03→13:18)
[2019-03-27 05:24] VITALS: BP 137/81
[2019-03-27] MEDS: HYDROcodone-ACET 5/325MG TAB PO PRN ×3 (06:42→22:42)
[2019-03-27 09:00] VITALS: BP 140/88
[2019-03-27] MEDS: LEVOFLOXACIN 750MG 150 ML IV SCH (09:39)
[2019-03-27] MEDS: PANTOPRAZOLE 40 MG TAB PO SCH (09:39)
[2019-03-27] MEDS: SODIUM CHLORIDE 0.9% 1,000 ML IV SCH ×2 (11:48→22:50)
[2019-03-27 13:00] VITALS: BP 119/71
[2019-03-27 13:30] LABS: Basophils # (auto) 0 uL; Basophils % (auto) 0.1 % (0.0-2.0); Eosinophils # (auto) 0 uL; Hematocrit 45.3 % (41.0-53.0); Hemoglobin 14.7 g/dL (13.5-17.5); Lymphocytes # (auto) 0.5 uL; Lymphocytes % (auto) 3.3 % (10.0-50.0); Mean Corpuscular Hemoglobin 28.4 pg (28.0-32.0); Mean Corpuscular Hgb Conc. 32.5 g/dL (32.0-36.0); Mean Corpuscular Volume 87.6 fL (80.0-100.0); Monocytes # (auto) 0.3 uL; Monocytes % (auto) 1.9 % (0.0-12.0); Neutrophils # (auto) 13.4 uL; Neutrophils % (auto) 94.7 % (37.0-80.0); Platelet Count (auto) 371 10^3/uL (140-450); Red Blood Cells 5.18 10^6/uL (4.5-5.90); Red Cell Distribution Width 15.2 % (11.8-14.3); White Blood Cell 14.2 10^3/uL (4.4-10.8)
[2019-03-27 13:50] LABS: BUN/Creatinine Ratio 19.1; Calcium 9.5 mg/dL (8.5-10.1)
[2019-03-27 17:00] VITALS: BP 127/95
[2019-03-27 21:36] VITALS: BP 113/65
[2019-03-27 22:52] LABS: Amylase 86 U/L (25-115); Lipase 94 U/L (73-393)
[2019-03-28 05:01] VITALS: BP 148/82
[2019-03-28 09:00] VITALS: BP 146/86
[2019-03-28] MEDS: methylPREDNISolone SOD SUCC 40 MG/ML VL IV SCH (09:46)
[2019-03-28] MEDS: LEVOFLOXACIN 750MG 150 ML IV SCH (09:46)
[2019-03-28] MEDS: PANTOPRAZOLE 40 MG TAB PO SCH (09:47)
[2019-03-28] MEDS: HYDROcodone-ACET 5/325MG TAB PO PRN (10:45)
[2019-03-28 13:00] VITALS: BP 162/91
[2019-03-28] MEDS ORDERED: LEVO750T2 PO (14:28)
== END 2019-03-28 15:50 | disposition home or self-care (01) | DRG 720 ==
LOC: ER 16:08 → EDUNIT# 16:08 → EDBD 16:08 → OVERFLOW 16:09 → WEST WING 03-26 09:42
PROVIDERS: ADMIT Hospitalist; ATTEND Internal Medicine Nephrology
DX: A41.9 Sepsis, unspecified organism (principal); J96.00 Acute respiratory failure, unspecified whether with hypoxia or hypercapnia; I11.0 Hypertensive heart disease with heart failure; I50.42 Chronic combined systolic (congestive) and diastolic (congestive) heart failure; I42.0 Dilated cardiomyopathy; J15.6 Pneumonia due to other Gram-negative bacteria; J44.0 Chronic obstructive pulmonary disease with (acute) lower respiratory infection; F19.10 Other psychoactive substance abuse, uncomplicated; F11.90 Opioid use, unspecified, uncomplicated; I25.10 Atherosclerotic heart disease of native coronary artery without angina pectoris; F15.10 Other stimulant abuse, uncomplicated; E78.5 Hyperlipidemia, unspecified; B19.20 Unspecified viral hepatitis C without hepatic coma; J44.1 Chronic obstructive pulmonary disease with (acute) exacerbation; Z91.19 Patient's noncompliance with other medical treatment and regimen; Z71.6 Tobacco abuse counseling; Z72.0 Tobacco use; Z91.14 Patient's other noncompliance with medication regimen
CPT/HCPCS: 36415; 71045; 80048; 80053; 82150; 83605; 83690; 83880; 84484; 85025; 87040; 87081; 94640; 96361; 96365; 96375; G0378; J1956

== ENCOUNTER 2019-04-06 01:47 | Emergency (ER) | payer MEDICAID ==
[~2019-04-06] VITALS: Ht 188 cm; Wt 82.1 kg
[~2019-04-06 01:47] MED LIST changes: -DOX100T PO; +LEVO750T2 PO
[2019-04-06 02:37] LABS: Hematocrit 42.6 % (41.0-53.0); Hemoglobin 13.7 g/dL (13.5-17.5); Mean Corpuscular Hemoglobin 27.9 pg (28.0-32.0); Mean Corpuscular Hgb Conc. 32.2 g/dL (32.0-36.0); Mean Corpuscular Volume 86.5 fL (80.0-100.0); Platelet Count (auto) 282 10^3/uL (140-450); Red Blood Cells 4.93 10^6/uL (4.5-5.90); Red Cell Distribution Width 15.2 % (11.8-14.3); White Blood Cell 4.8 10^3/uL (4.4-10.8)
[2019-04-06 02:53] LABS: Albumin 2.8 g/dL (3.4-5.0); BUN/Creatinine Ratio 15.4; Calcium 8.9 mg/dL (8.5-10.1)
[2019-04-06 02:55] LABS: Bilirubin, Total 0.3 mg/dL (0.2-1.0); Total Protein 7.6 g/dL (6.4-8.2)
[2019-04-06 02:57] LABS: Basophils % (manual) 0 (0.0-2.0); Blast Cells 0; Metamyelocytes % 0; Myelocytes % 0; Promyelocytes % 0; Reactive Lymphocytes 0
[2019-04-06 03:38] LABS: Band Neutrophils % (manual) 1; Eosinophils % (manual) 1 (0-7); Lymphocytes % (manual) 29 (10.0-50.0); Monocytes % (manual) 7 (0-12)
[2019-04-06] MEDS ORDERED: SILVER SULFADIAZINE 1 % TOPICAL CREAM 50GM TOP ONE (05:00)
[2019-04-06] MEDS: TETANUS-DIPTH-ACEL PERTUSSIS 0.5ML SYRG IM ONE ×2 (05:00→05:29)
[2019-04-06 05:11] VITALS: BP 130/91
== END 2019-04-06 06:03 | disposition home or self-care (01) ==
LOC: ER 01:51
DX: T25.221A Burn of second degree of right foot, initial encounter (principal); I25.10 Atherosclerotic heart disease of native coronary artery without angina pectoris; J44.9 Chronic obstructive pulmonary disease, unspecified; E78.5 Hyperlipidemia, unspecified; I10 Essential (primary) hypertension; I25.2 Old myocardial infarction; Z88.1 Allergy status to other antibiotic agents; Z88.6 Allergy status to analgesic agent; X12.XXXA Contact with other hot fluids, initial encounter; Y93.89 Activity, other specified; Y92.89 Other specified places as the place of occurrence of the external cause; Y99.8 Other external cause status
CPT/HCPCS: 16020; 36415; 80053; 85007; 85027; 90715

== ENCOUNTER → 2019-08-05 16:41 | Emergency (ER) | payer OTHER ==
[~2019-08-05] VITALS: Ht 188 cm; Wt 72.6 kg
[~2019-08-05 16:41] MED LIST changes: +DOXY-286 PO; +FURO40TA4; +IOHEXOL 300 MG/ML 100ML BOTTLE IJ ONE; -LEVO750T2 PO; +MORPHINE SULF INJ 2 MG/ML SYRINGE 1ML IV ONE; +ONDANSETRON HCL 4 MG/2 ML VIAL IV ONE
[2019-08-05 18:26] LABS: Basophils # (auto) 0 10 ^3/uL (0-0.2); Basophils % (auto) 1.1 % (0.0-2.0); Eosinophils # (auto) 0.3 10 ^3/uL (0-0.8); Eosinophils % (auto) 9.1 % (0.0-7.0); Hematocrit 42.2 % (41.0-53.0); Hemoglobin 13.5 g/dL (13.5-17.5); Lymphocytes # (auto) 0.6 10 ^3/uL (0.4-5.4); Lymphocytes % (auto) 16.9 % (10.0-50.0); Mean Corpuscular Hemoglobin 27.7 pg (28.0-32.0); Mean Corpuscular Volume 86.5 fL (80.0-100.0); Monocytes # (auto) 0.3 10 ^3/uL (0-1.3); Monocytes % (auto) 8.4 % (0.0-12.0); Neutrophils # (auto) 2.1 10 ^3/uL (1.6-8.6); Neutrophils % (auto) 64.5 % (37.0-80.0); Platelet Count (auto) 306 10^3/uL (140-450); Red Blood Cells 4.88 10^6/uL (4.5-5.90); Red Cell Distribution Width 14.4 % (11.8-14.3); White Blood Cell 3.3 10^3/uL (4.4-10.8)
[2019-08-05 18:49] LABS: Albumin 3.2 g/dL (3.4-5.0); BUN/Creatinine Ratio 13.1; Calcium 8.9 mg/dL (8.5-10.1); Potassium 3.7 mmol/L (3.5-5.1)
[2019-08-05 18:51] LABS: Bilirubin, Total 0.3 mg/dL (0.2-1.0); Total Protein 8.3 g/dL (6.4-8.2)
[2019-08-05 23:44] VITALS: BP 139/81
== END | disposition left against medical advice (07) ==
LOC: EDUNIT# 16:33 → EDBD 16:41 → ER 16:41
DX: S83.91XA Sprain of unspecified site of right knee, initial encounter (principal); S13.9XXA Sprain of joints and ligaments of unspecified parts of neck, initial encounter; S27.322A Contusion of lung, bilateral, initial encounter; I11.0 Hypertensive heart disease with heart failure; I50.9 Heart failure, unspecified; J44.9 Chronic obstructive pulmonary disease, unspecified; F17.210 Nicotine dependence, cigarettes, uncomplicated; I25.2 Old myocardial infarction; V49.9XXA Car occupant (driver) (passenger) injured in unspecified traffic accident, initial encounter; Y93.89 Activity, other specified; Y92.488 Other paved roadways as the place of occurrence of the external cause; Y99.8 Other external cause status
CPT/HCPCS: 36415; 70450; 71045; 71260; 72125; 73562; 74177; 80053; 85025; 96374; 96375; 99285; J2270; J2405; Q9967

== ENCOUNTER 2019-10-18 21:03 | Emergency (ER) | payer OTHER ==
[~2019-10-18] VITALS: Ht 188 cm; Wt 68.0 kg
[~2019-10-18 21:03] MED LIST changes: +LISI-648 PO; -LISI10TA6 PO
[2019-10-18 21:32] VITALS: BP 100/67
[2019-10-18 22:06] LABS: Basophils # (auto) 0 10 ^3/uL (0-0.2); Eosinophils # (auto) 0 10 ^3/uL (0-0.8)
[2019-10-18 22:08] LABS: Basophils % (auto) 0.4 % (0.0-2.0); Hematocrit 35.8 % (41.0-53.0); Hemoglobin 11.4 g/dL (13.5-17.5); Lymphocytes # (auto) 1.4 10 ^3/uL (0.4-5.4); Lymphocytes % (auto) 15.1 % (10.0-50.0); Mean Corpuscular Hemoglobin 25.7 pg (28.0-32.0); Mean Corpuscular Hgb Conc. 31.7 g/dL (32.0-36.0); Mean Corpuscular Volume 80.9 fL (80.0-100.0); Monocytes % (auto) 10.8 % (0.0-12.0); Neutrophils # (auto) 6.9 10 ^3/uL (1.6-8.6); Neutrophils % (auto) 73.7 % (37.0-80.0); Platelet Count (auto) 439 10^3/uL (140-450); Red Blood Cells 4.42 10^6/uL (4.5-5.90); White Blood Cell 9.3 10^3/uL (4.4-10.8)
[2019-10-18 22:25] LABS: Albumin 2.4 g/dL (3.4-5.0); BUN/Creatinine Ratio 21.6; Calcium 9.5 mg/dL (8.5-10.1); Magnesium 2.2 mg/dL (1.6-2.6); Potassium 4.4 mmol/L (3.5-5.1)
[2019-10-18 22:28] LABS: Bilirubin, Total 0.8 mg/dL (0.2-1.0)
== END 2019-10-18 23:38 | disposition left against medical advice (07) ==
LOC: ER 21:03
DX: J18.9 Pneumonia, unspecified organism (principal); I11.0 Hypertensive heart disease with heart failure; I50.9 Heart failure, unspecified; J44.9 Chronic obstructive pulmonary disease, unspecified; E78.5 Hyperlipidemia, unspecified; Z98.61 Coronary angioplasty status; Z20.828 Contact with and (suspected) exposure to other viral communicable diseases
CPT/HCPCS: 36415; 71045; 80053; 82728; 83605; 83735; 83880; 84443; 85025; 85379; 86141; 93005; 99285; U0003

== ENCOUNTER → 2019-10-18 | Emergency (ER) | payer OTHER ==
[~2019-10-18] VITALS: Ht 188 cm; Wt 68.0 kg
[~2019-10-18] MED LIST changes: -FAM20T PO; +FAMO20TA10 PO; -IOHEXOL 300 MG/ML 100ML BOTTLE IJ ONE; -MORPHINE SULF INJ 2 MG/ML SYRINGE 1ML IV ONE; -ONDANSETRON HCL 4 MG/2 ML VIAL IV ONE
[2019-10-18 20:30] VITALS: BP 112/63
== END | disposition home or self-care (01) ==
LOC: ER 19:41
DX: R06.02 Shortness of breath (principal); Z53.21 Procedure and treatment not carried out due to patient leaving prior to being seen by health care provider
CPT/HCPCS: 93005

== ENCOUNTER 2019-11-04 12:44 | Inpatient (IN) | payer OTHER ==
[~2019-11-04] VITALS: Ht 188 cm; Wt 79.9 kg
[2019-11-04 13:56] LABS: Basophils # (auto) 0 10 ^3/uL (0-0.2); Eosinophils # (auto) 0 10 ^3/uL (0-0.8); Eosinophils % (auto) 0.1 % (0.0-7.0); Hemoglobin 11.9 g/dL (13.5-17.5); Monocytes # (auto) 0.1 10 ^3/uL (0-1.3)
[2019-11-04 13:58] LABS: Basophils % (auto) 0.4 % (0.0-2.0); Hematocrit 38.1 % (41.0-53.0); Lymphocytes # (auto) 0.5 10 ^3/uL (0.4-5.4); Lymphocytes % (auto) 14.4 % (10.0-50.0); Mean Corpuscular Hemoglobin 25.1 pg (28.0-32.0); Mean Corpuscular Hgb Conc. 31.3 g/dL (32.0-36.0); Mean Corpuscular Volume 80.3 fL (80.0-100.0); Monocytes % (auto) 3.4 % (0.0-12.0); Neutrophils # (auto) 2.7 10 ^3/uL (1.6-8.6); Neutrophils % (auto) 81.7 % (37.0-80.0); Platelet Count (auto) 387 10^3/uL (140-450); Red Blood Cells 4.74 10^6/uL (4.5-5.90); Red Cell Distribution Width 17.2 % (11.8-14.3); White Blood Cell 3.3 10^3/uL (4.4-10.8)
[2019-11-04 14:13] LABS: BUN/Creatinine Ratio 29.8; Calcium 9.3 mg/dL (8.5-10.1); Potassium 3.4 mmol/L (3.5-5.1)
[2019-11-04 14:18] LABS: Bilirubin, Total 0.7 mg/dL (0.2-1.0); Total Protein 7.2 g/dL (6.4-8.2)
[2019-11-04] MEDS ORDERED: ENOXAPARIN SOD 60 MG/0.6 ML SYRINGE SC ONE (14:30)
[2019-11-04 15:05] LABS: CRP High Sensitivity 13.5 mg/dL (< 0.3)
[2019-11-04] MEDS ORDERED: POTASSIUM CHL 20MEQ/100ML 100 ML IV ONE (15:45)
[2019-11-04] MEDS ORDERED: MAGNESIUM SULFATE 1GM/100ML 100 ML IV ONE (15:45)
[2019-11-04] MEDS ORDERED: ATORVASTATIN 20 MG TAB PO ONE (16:00)
[2019-11-04] MEDS: D5W/ SOD CHL 0.9%/KCL 20MEQ 1,000 ML IV SCH (16:00)
[2019-11-04] MEDS ORDERED: METOPROLOL SUCCINATE XL 50 MG TAB PO ONE (16:00)
[2019-11-04] MEDS ORDERED: FUROSEMIDE 20 MG/2 ML VIAL IV ONE (16:00)
[2019-11-04] MEDS ORDERED: GENTAMICIN PER PHARMACY 0 ML IV SCH (16:15)
[2019-11-04] MEDS ORDERED: VANCOMYCIN PER PHARMACY 0 MG IV SCH (16:15)
[2019-11-04] MEDS: FUROSEMIDE 20 MG/2 ML VIAL IV SCH (16:44)
[2019-11-04] MEDS ORDERED: NITROGLYCERIN 0.4 MG SL TAB SL PRN ×2 (17:15)
[2019-11-04] MEDS ORDERED: ACETAMINOPHEN 325 MG TAB PO PRN (17:15)
[2019-11-04] MEDS ORDERED: MORPHINE SULF INJ 2 MG/ML SYRINGE 1ML IV PRN ×2 (17:15)
[2019-11-04] MEDS ORDERED: ALUM & MAG HYDROX-SIMETH LIQ(MAALOX) 30 ML PO ONE (17:15)
[2019-11-04] MEDS ORDERED: MORPHINE SULFATE 4 MG/ML SYR/VIAL IV PRN (17:15)
[2019-11-04] MEDS ORDERED: LORazepam 0.5 MG TAB PO PRN (17:15)
[2019-11-04] MEDS: VANCOMYCIN 1GM/250ML 250 ML IV SCH (17:41)
[2019-11-04] MEDS ORDERED: GENTAMICIN SULFATE 280 MG in D5W 5% 100 ML IV ONE (18:00)
[2019-11-04] MEDS ORDERED: IPRATROPIUM BROM 0.5 MG/2.5ML INH SOL NEB SCH (18:00)
[2019-11-04] MEDS ORDERED: ONDANSETRON HCL 4 MG/2 ML VIAL IV PRN (19:00)
[2019-11-04 20:47] VITALS: BP 131/104
[2019-11-04 20:48] VITALS: BP 131/104
--- NOTE | 2019-11-04 20:48 | NUR ---
pt was transported from ER to room 238. Pt arrived to room 238 at approximately 2046. music sound light technician transporting pt from ER to 238 called a code assist at approximately 2047 in room 238. This nurse (Tracy) walked into the room at that time in which the code assist was called, to find this patient slumped over a chair in room 238. ER Nurse aid transporting explained that the patient appeared to be having a seizure while transferring self to hospital bed. pt was unresponsive at this time, but continued to breath. pt also had a pulse. pt was lifted up onto the hospital bed at approximately 2047 by this RN and respiratory therapist Hyun. pt remained altered and unresponsive. Charge nurse Alma, Structurer August, and Dr. Hamilton arrived to room 238 at approximately 2051. pt continued to breath, but was unable to answer questions. Patients eyes remained open. Pt has history of IV drug (heroin) abuse. Pt also received Morphine in the ER prior to being transferred to room 238. Therefore, it was suspected that the patient was having a drug overdose reaction. Pt received Narcan at 2057. pt began to show subtle signs of alertness, however his spo2 saturations remained below 80%. pt was also tachpneic, maintaining respirations at above 35 breaths a minute. pt vomited at 2058, and was suctioned. Patients blood glucose was assessed, and was found to be 90. Pt received dextrose 50% at 2102. Pts heart rate sustained at above 140. Dr Hamilton ordered 5mg metoprolol via IV at 2109. Normal Saline bolus was started at 2109 as order by MD Hamilton. Heart rate sustained at above 160, and lopressor was administered at 2118. Pt remained tachpneic without showing signs of improvement. Spo2 satuations remained low, below 80% on 15 liters nonrebreather. Pt stopped breathing twice at approximately 2149. Patient began to tire out. Another code assist was call at approximately 2151. 10g of etomidate was administered as 2209. 100g of succinate was administered at 2209. dr hamilton intubated at approximately 2211, size 8 at 24cm. Patient transported to DADA via stretcher. Patient care endorsed to Ana THOMAS at 2338.
[2019-11-04] MEDS ORDERED: METOPROLOL TARTRATE 1MG/1ML-5ML VIAL IV ONE (21:19)
[2019-11-04] MEDS: ATORVASTATIN 20 MG TAB PO SCH (22:00)
[2019-11-04] MEDS ORDERED: SUCCINYLCHOLINE CHLORIDE 20 MG/ML 10ML VIAL IV ONE (22:00)
[2019-11-04] MEDS ORDERED: FAMOTIDINE 20 MG TAB PO SCH (22:00)
[2019-11-04] MEDS ORDERED: ETOMIDATE (2MG/ML) 20ML VIAL IV ONE (22:00)
--- NOTE | 2019-11-04 22:10 | NUR ---
PT INTUBATED BY MD PORTER.
[2019-11-04] MEDS ORDERED: DEXTROSE 50% SYRINGE 50 ML IV ONE (22:11)
--- NOTE | 2019-11-04 22:12 | NUR ---
PT INTUBATED BY MD PORTER ON SECOND ATTEMPT, AT 2210. BILATERAL CHEST RISE SEEN AND POSITIVE COLOR CHANGE ON CO2-DETECTOR NOTED CONDENSATION SEEN IN ETT. ETT SECURED AT 24CMS AT THE LIP VIA HOLISTER. PLACED ON VENT, VENT CONNECTED TO RED OUTLET AND O2 SOURCE ALARMS ARE SET AND AUDIBLE. AMBU BAG AND MASK AT BEDSIDE. BS ARE COURSE T/ SXD FOR LARGE AMOUNT OF THICK GREEN/YELLOW SECRETIONS SPUTUM SAMPLE OBTAINED AND SENT TO LAB. WILL TRANSFER SOON DADA ROOM IS CLEANED. WILL CLOSELY MONITOR. SOPHIA JENKINS RNS DOMO AND DEVI AT BEDSIDE AND AWARE OF ALL CHANGES.
--- NOTE | 2019-11-04 22:35 | NUR ---
FIO2 TITRATED TO 50% PER ABG RESULTS. MD PORTER AT BEDSIDE PERFORMING CENTRAL LINE AND AWARE OF O2 CHANGE.
--- NOTE | 2019-11-04 22:38 | NUR ---
PER CXR ETT SEEN AT CLAVICLE LEVEL. ETT ADVANCED TO 26CMS AT THE LIP CXR RECAPTURE AND IN GOOD POSITION NOW. HOUSE JUAN JENKINS , WILLIAM QUINONEZ AND WILLIAM OLIVEROS AT BEDSIDE AND AWARE OF CHANGE.
[2019-11-04] MEDS ORDERED: MIDAZOLAM DRIP 50 mg/50mL 50 ML IV ONE (22:43)
[2019-11-04] MEDS: PROPOFOL 100 ML IV SCH (23:10)
[2019-11-05] VITALS (101 sets, daily range): BP systolic 70–125; BP diastolic 44–89
--- NOTE | 2019-11-05 00:50 | NUR ---
AT BEDSIDE IN FULL PPE FOR ABG DRAW.
--- NOTE | 2019-11-05 00:58 | NUR ---
VENT CHANGES MADE AT THIS TIME. AT BEDSIDE IN FULL PPE DUE TO COVID PRECAUTIONS. VT INCREASED TO 500mls AND FIO2 INCREASED TO 60% WILLIAM BRODY, AT BEDSIDE AND AWARE OF CHANGES.
[2019-11-05] MEDS: D5W/ SOD CHL 0.9%/KCL 20MEQ 1,000 ML IV SCH (01:00)
--- NOTE | 2019-11-05 01:05 | NUR ---
Respiratory note: VENT CHECK DONE BY PTS ROOM DOOR. DUE TO COVID PRECAUTIONS. NO VENT CHANGES MADE AT THIS TIME WILL CONTINUE TO MONITOR.
[2019-11-05] MEDS: MIDAZOLAM DRIP 50 mg/50mL 50 ML IV SCH ×2 (01:30→23:10)
[2019-11-05] MEDS: NOREPINEPHRINE 8 MG/250ML KIT 250 ML IV SCH ×2 (01:52→11:38)
[2019-11-05] MEDS ORDERED: NOREPINEPHRINE 8 MG/250ML KIT 250 ML IV ONE (01:52)
--- NOTE | 2019-11-05 03:04 | NUR ---
RT CRYSTAL AT BEDSIDE IN FULL PPE DUE TO COVID PRECAUTIONS. ABG DONE AT THIS TIME.
--- NOTE | 2019-11-05 03:12 | NUR ---
FIO2 TITRATED VIA VENT TO 40%. PT TOLERATING O2 CHANGE WELL. WILLIAM CHAN MADE AWARE.
[2019-11-05] MEDS ORDERED: METOPROLOL TARTRATE 1MG/1ML-5ML VIAL IV ONE (03:15)
[2019-11-05] MEDS ORDERED: SUCCINYLCHOLINE CHLORIDE 20 MG/ML 10ML VIAL IV ONE (03:15)
[2019-11-05] MEDS ORDERED: ETOMIDATE (2MG/ML) 20ML VIAL IV ONE (03:15)
[2019-11-05] MEDS ORDERED: SODIUM CHLORIDE 0.9% 1,000 ML IV ONE (03:15)
[2019-11-05] MEDS: PROPOFOL 100 ML IV SCH ×2 (04:00→18:24)
[2019-11-05] MEDS: FUROSEMIDE 20 MG/2 ML VIAL IV SCH ×2 (06:00→18:16)
--- NOTE | 2019-11-05 07:30 | NUR ---
REPORT OBTAINED PATIENT ON VENTILATOR, SEDATED ON LEVOPHED TO RIGHT IJ TLC. VSS. SEE INTERVENTIONS/ IV SPREADSHEET.
--- NOTE | 2019-11-05 09:55 | NUR ---
WOUND CARE NOTE: Wound care in to see patient due to intubation status and low Albert score of 12, putting patient to high risk for skin breakdown. Patient is 59years old male with admitting diagnosis of Acute Interstitial Bilateral Pna. Patient is resting in SDU bed in Rm. 265. Patient is intubated,sedated and mechanically ventilated. Patient appears to be in no pain using López Randhawa Faces Pain Scale. Skin assessment done with the assistance of patient's nurse, WILLIAM Frank. No wound noted other than tiny pink scar tissue to sacrum, no pressure injury noted. Patient is receiving BID/PRN cleaning and application of Barrier cream to sacrum with preventative Opti foam sacral dressing. Repositioned patient for comfort facing his Rt side, redistributed pressure points with pillows. Patient tolerated well. WILLIAM Frank at bedside. RECOMMENDATION: Nursing to continue with BID/PRN cleaning and application of Barrier cream to sacral, buttocks as preventative, frequent turning and repositioning schedule as condition permits, redistribute pressure points with pillows, elevate heels on pillows, continue monitoring by wound care while patient is mechanically ventilated and Albert score is <18. Addendum: 11/05/19 at 1545 by Deborah Hernandez RN Amended: Links added.
[2019-11-05] MEDS: ASPirin 81 mg TAB PO SCH (10:00)
[2019-11-05] MEDS ORDERED: METOPROLOL SUCCINATE XL 50 MG TAB PO SCH (10:00)
[2019-11-05] MEDS ORDERED: DOCUSATE SOD 100 MG CAP PO SCH (10:00)
[2019-11-05] MEDS ORDERED: LISINOPRIL 5 MG TAB PO SCH (10:00)
[2019-11-05 10:40] LABS: Basophils # (auto) 0 10 ^3/uL (0-0.2); Eosinophils # (auto) 0 10 ^3/uL (0-0.8); Monocytes # (auto) 0.1 10 ^3/uL (0-1.3)
[2019-11-05 10:43] LABS: Basophils % (auto) 0.6 % (0.0-2.0); Eosinophils % (auto) 0.3 % (0.0-7.0); Hematocrit 35.2 % (41.0-53.0); Hemoglobin 10.6 g/dL (13.5-17.5); Lymphocytes # (auto) 0.5 10 ^3/uL (0.4-5.4); Mean Corpuscular Hemoglobin 24.3 pg (28.0-32.0); Mean Corpuscular Volume 81.1 fL (80.0-100.0); Monocytes % (auto) 2.7 % (0.0-12.0); Neutrophils # (auto) 4.3 10 ^3/uL (1.6-8.6); Neutrophils % (auto) 86.4 % (37.0-80.0); Nucleated Red Blood Cells % 0.2 %; Platelet Count (auto) 319 10^3/uL (140-450); Red Blood Cells 4.34 10^6/uL (4.5-5.90); Red Cell Distribution Width 16.8 % (11.8-14.3)
[2019-11-05 10:56] LABS: Albumin 1.7 g/dL (3.4-5.0); Calcium 8.6 mg/dL (8.5-10.1); Potassium 3.8 mmol/L (3.5-5.1)
[2019-11-05 11:00] LABS: BUN/Creatinine Ratio 29.7; Bilirubin, Total 0.4 mg/dL (0.2-1.0)
[2019-11-05] MEDS ORDERED: ENOXAPARIN SOD 40 MG/0.4 ML SYRINGE SC ONE (11:15)
[2019-11-05] MEDS: VANCOMYCIN 1GM/250ML 250 ML IV SCH (11:38)
--- NOTE | 2019-11-05 11:39 | NUR ---
MD AT BEDSIDE SEE NEW ORDERS. SECOND TEST FOR COVID TO BE SENT.
--- NOTE | 2019-11-05 11:45 | NUR ---
FAMILY ATTEMPTED TO CALL. MSG LEFT. AWAITING CALLBACK.
[2019-11-05] MEDS ORDERED: DEXTROSE (50%) 50ML SYRG IV ONE (12:17)
[2019-11-05] MEDS ORDERED: NALOXONE HCL 1MG/ML 2ML SYRINGE IV ONE (12:17)
[2019-11-05] MEDS: CEFEPIME 1 GM in SODIUM CHL 0.9% 50 ML IV SCH ×2 (13:37→22:00)
--- NOTE | 2019-11-05 14:02 | NUR ---
Family updated on pt status Family of TYRESE ESTRADA updated on patient's status and condition. All questions and concerns addressed. Parul, sister, verbalized understanding.
--- NOTE | 2019-11-05 14:30 | NUR ---
CARDIOLOGY PAGED UPDATED DR. Sylvie HERNANDEZ ON PATIENTS STATUS. NEW ORDERS TO START DOBUTAMINE GTT TO KEEP UO AT LEAST 40ML/HR. NEW ORDER FOR IV FLUIDS TO BE CHANGED TO D 51/2NS WITH 1 AMP OF SODIUM BICARB AT 70ML/HR. HOSPITALIST AT BEDSIDE NOTIFIED OF ORDER CHANGES AND NO URINE OUTPUT THROUGHOUT SHIFT. VERBALIZED UNDERSTANDING AND IS OVERWRITING CURRENT ORDERS.
--- NOTE | 2019-11-05 15:12 | NUR ---
Consult Consider Osmolite 1.2 at 65 ml/hr per MD approval Est energy needs 7694-5500 kcal (20-23 kcal/kg IBW 86.4kg) Est protein needs 86-94g (1-1.1g/kg IBW 86.4kg) will reassess prn. Addendum: 11/05/19 at [address] Amended: Links added.
[2019-11-05] MEDS ORDERED: FUROSEMIDE 40 MG/4 ML VIAL IV ONE (18:00)
[2019-11-05] MEDS ORDERED: Ensure Enlive Strawberry 8oz Bottle PO SCH (18:00)
[2019-11-05] MEDS: GENTAMICIN SULFATE IV SCH (18:16)
[2019-11-05] MEDS: D5W 5% IV SCH (18:16)
--- NOTE | 2019-11-05 18:40 | NUR ---
Respiratory note: RECEIVED PT ON VENT. AT BEDSIDE IN FULL PPE DUE TO COVID PRECAUTIONS. VENT CONNECTED TO RED OUTLET AND O2 SOURCE ALARMS ARE SET AND AUDIBLE. AMBU BAG AND MASK AT BEDSIDE. BS ARE FINE COURSE SXD VIA ETT FOR SCANT BARNEY. PTS CURRENT TEMP IS 98.6F. WILL CONTINUE TO MONITOR.
--- NOTE | 2019-11-05 19:40 | NUR ---
report received and assumed care; see interventions for assessment; vs stable at this time with o2 sat at 100% when waveform is a good pleth; see iv spreadsheet for gtts; will cont. to monitor.
[2019-11-05] MEDS: fentaNYL Drip 2500mCg/250mlNS 250 ML IV SCH (20:54)
[2019-11-05] MEDS: ATORVASTATIN 20 MG TAB PO SCH (22:00)
--- NOTE | 2019-11-05 22:48 | NUR ---
Respiratory note: VENT CHECK DONE FROM PTS ROOM DOOR DUE TO COVID PRECAUTIONS. PTS CURRENT TEMP IS 99.1F. NO CHANGES MADE WILL CONTINUE TO MONITOR.
[2019-11-06] VITALS (101 sets, daily range): BP systolic 82–106; BP diastolic 57–85
[2019-11-06] MEDS: D5W 5% IV SCH (01:50)
[2019-11-06] MEDS: GENTAMICIN SULFATE IV SCH (01:50)
--- NOTE | 2019-11-06 02:06 | NUR ---
Respiratory note: VENT CHECK DONE FROM PTS ROOM DOOR DUE TO COVID PRECAUTIONS. PTS CURRENT TEMP IS 98.4F. NO CHANGES MADE WILL CONTINUE TO MONITOR.
[2019-11-06] MEDS: CEFEPIME 1 GM in SODIUM CHL 0.9% 50 ML IV SCH ×3 (06:00→22:30)
[2019-11-06] MEDS: FUROSEMIDE 20 MG/2 ML VIAL IV SCH ×2 (06:16→17:15)
[2019-11-06] MEDS: VANCOMYCIN 1GM/250ML 250 ML IV SCH (07:00)
--- NOTE | 2019-11-06 08:29 | NUR ---
PENDING DOWNGRADE BONDERITE OPERATOR AWARE MD HAS NOT YET RETURNED CALL. RACHEL Waldron CONTACTED HERSELF FOR DOWNGRADE. AWAITING OK BY BONDERITE OPERATOR OR . Addendum: 11/06/19 at 0831 by Monika Gonzalez RN WRONG PATIENT
[2019-11-06] MEDS: ASPirin 81 mg TAB PO SCH (08:34)
[2019-11-06] MEDS: ENOXAPARIN SOD 40 MG/0.4 ML SYRINGE SC SCH (08:34)
[2019-11-06] MEDS: PANTOPRAZOLE 40 MG/10 ML VIAL INJ IV SCH (08:34)
--- NOTE | 2019-11-06 09:00 | NUR ---
PENDING DOWNGRADE FISH HATCHERY SPECIALIST AWARE NO CALLBACK. DIRECTOR TO CONTACT . Addendum: 11/06/19 at 0941 by Monika Gonzalez RN WRONG PATIENT
--- NOTE | 2019-11-06 09:00 | NUR ---
WEDDING DESIGNER DR. HERNANDEZ UPDATED ON PATIENTS STATUS. PER MD NOT URGENT NEED FOR ECHO AT THIS TIME UNTL COVID RESULTS CONFIRMED NEGATIVE.
[2019-11-06 09:04] LABS: Eosinophils # (auto) 0.1 10 ^3/uL (0-0.8); Lymphocytes # (auto) 0.4 10 ^3/uL (0.4-5.4); Monocytes # (auto) 0.1 10 ^3/uL (0-1.3); Monocytes % (auto) 2.2 % (0.0-12.0)
[2019-11-06 09:07] LABS: Basophils # (auto) 0 10 ^3/uL (0-0.2); Basophils % (auto) 0.8 % (0.0-2.0); Eosinophils % (auto) 0.9 % (0.0-7.0); Hemoglobin 10.4 g/dL (13.5-17.5); Lymphocytes % (auto) 7.1 % (10.0-50.0); Mean Corpuscular Hgb Conc. 30.5 g/dL (32.0-36.0); Mean Corpuscular Volume 81.8 fL (80.0-100.0); Nucleated Red Blood Cells % 0.3 %; Platelet Count (auto) 248 10^3/uL (140-450); Red Blood Cells 4.16 10^6/uL (4.5-5.90); Red Cell Distribution Width 17.2 % (11.8-14.3); White Blood Cell 5.6 10^3/uL (4.4-10.8)
[2019-11-06 09:10] LABS: BUN/Creatinine Ratio 25.2; Calcium 8.8 mg/dL (8.5-10.1); Potassium 3.6 mmol/L (3.5-5.1)
--- NOTE | 2019-11-06 10:00 | NUR ---
Family updated on pt status Family of TYRESE ESTRADA updated on patient's status and condition. All questions and concerns addressed. Mother verbalized understanding.
[2019-11-06] MEDS: LINEZOLID 600MG/300ML 300 ML IV SCH ×2 (11:45→21:40)
--- NOTE | 2019-11-06 12:00 | NUR ---
Family updated on pt status Family of TYRESE ESTRADA updated on patient's status and condition. All questions and concerns addressed. Sister, Radha verbalized understanding.
--- NOTE | 2019-11-06 15:00 | NUR ---
UPDATED ON PATIENTS STATUS. SEE NEW ORDERS.
--- NOTE | 2019-11-06 16:58 | NUR ---
1145 ZYVOX MEDICATION SEEN LATE AND TOO CLOSE TO 2200 DOSE. DOSE HELD AT THIS TIME. FIRST DOSE 2200.
--- NOTE | 2019-11-06 17:04 | NUR ---
Will asses patient once he his of the vent.
[2019-11-06 19:06] LABS: Alcohol, Urine < 3.0 mg/dL (0-10); Amphetamine Screen, Urine NEGATIVE (NEGATIVE); Barbiturate Scree,Urine NEGATIVE (NEGATIVE); Benzodiazephine Screen, Urine POSITIVE (NEGATIVE); Cannabinoid Screen, Urine NEGATIVE (NEGATIVE); Cocaine Screen, Urine NEGATIVE (NEGATIVE); Opiate Scree,Urine POSITIVE (NEGATIVE); Phencyclidine Screen, Urine NEGATIVE (NEGATIVE)
[2019-11-06 19:23] LABS: Urine Bacteria FEW /hpf (None Seen); Urine Blood TRACE /uL (Negative); Urine Budding Yeast FEW /hpf (None Seen); Urine Hyaline Cast MOD /lpf (0 - 2); Urine Mucus FEW (None Seen); Urine Specific Gravity 1.013 (1.001-1.035); Urine WBC 28 /hpf (0 - 3)
--- NOTE | 2019-11-06 19:30 | NUR ---
OPENING SHIFT RECEIVED REPORT FROM DAY SHIFT RN. ASSUMED CARE OF PATIENT. PATIENT INTUBATED AND SEDATED WITH NO SIGNS OR SYMPTOMS OF SOB, PAIN OR DISTRESS. HYPOACTIVE COUGH AND GAG. RIGHT INTERNAL JUGULAR AND RIGHT ANTECUBITAL - CLEAN/DRY/INTACT. JOSE HUNG TO GRAVITY. SEDATION: VERSED - 3MG/HR PROPOFOL - 50MCG/KG/MIN VASOPRESSOR: LEVOPHED - 6MCG/MIN REPOSITIONED FOR COMFORT. BED IN LOWEST POSITION, SIDE RAILS UPX2. WILL CONTINUE TO MONITOR.
[2019-11-06] MEDS: fentaNYL Drip 2500mCg/250mlNS 250 ML IV SCH (20:54)
--- NOTE | 2019-11-06 21:35 | NUR ---
UPDATED FAMILY PASSWORD VERIFIED. UPDATED FAMILY ON PATIENT STATUS AND PLAN OF CARE. ALL QUESTIONS AND CONCERNS ANSWERED AND ADDRESSED AT THIS TIME.
[2019-11-06] MEDS: PROPOFOL 100 ML IV SCH (22:30)
[2019-11-06] MEDS: ATORVASTATIN 20 MG TAB PO SCH (22:30)
--- NOTE | 2019-11-06 22:40 | NUR ---
BLADDER DISTENTION / JOSE REINSERTION NOTED 10CC URINE OUTPUT. BLADDER VERY DISTENDED. JSOE CATHETER NOT PLACED DEEP ENOUGH. NEW JOSE INSERTED - 1850 LIGHT MARKOS URINE OUTPUT AFTER NEW JOSE PLACED. JOSE PATENT AND DRAINING. WILL CONTINUE TO MONITOR.
[2019-11-07] VITALS (101 sets, daily range): BP systolic 80–118; BP diastolic 54–84
[2019-11-07] MEDS: MIDAZOLAM DRIP 50 mg/50mL 50 ML IV SCH ×2 (01:46→23:10)
[2019-11-07 03:55] LABS: Basophils # (auto) 0 10 ^3/uL (0-0.2); Eosinophils # (auto) 0.1 10 ^3/uL (0-0.8); Lymphocytes # (auto) 0.6 10 ^3/uL (0.4-5.4); Mean Corpuscular Hemoglobin 25.2 pg (28.0-32.0); Monocytes # (auto) 0.2 10 ^3/uL (0-1.3); Nucleated Red Blood Cells % 0.1 %; Red Blood Cells 3.99 10^6/uL (4.5-5.90); White Blood Cell 5.4 10^3/uL (4.4-10.8)
[2019-11-07 04:01] LABS: Basophils % (auto) 0.4 % (0.0-2.0); Eosinophils % (auto) 1.9 % (0.0-7.0); Hematocrit 32.5 % (41.0-53.0); Lymphocytes % (auto) 10.8 % (10.0-50.0); Mean Corpuscular Hgb Conc. 30.8 g/dL (32.0-36.0); Mean Corpuscular Volume 81.6 fL (80.0-100.0); Monocytes % (auto) 3.1 % (0.0-12.0); Neutrophils # (auto) 4.5 10 ^3/uL (1.6-8.6); Neutrophils % (auto) 83.8 % (37.0-80.0); Platelet Count (auto) 237 10^3/uL (140-450); Red Cell Distribution Width 16.9 % (11.8-14.3)
[2019-11-07 04:10] LABS: Calcium 8.5 mg/dL (8.5-10.1)
[2019-11-07 04:12] LABS: BUN/Creatinine Ratio 22.1
--- NOTE | 2019-11-07 04:35 | NUR ---
MORNING CARE PERFORMED MORNING CARE WITH CHG WIPES AND WASH CLOTHS TO THE FACE. PARTIAL LINEN CHANGE AND GOWN CHANGED. ORAL AND JOSE CARE PERFORMED. REPOSITIONED FOR COMFORT. SKIN REASSESSED AT THIS TIME. NOTED OPEN SKIN AROUND PENIS AREA - WOUND CARE PICTURES TAKEN. WILL CONTINUE TO MONITOR.
[2019-11-07] MEDS: CEFEPIME 1 GM in SODIUM CHL 0.9% 50 ML IV SCH ×3 (06:01→21:58)
[2019-11-07] MEDS: FUROSEMIDE 20 MG/2 ML VIAL IV SCH (06:01)
[2019-11-07] MEDS: NOREPINEPHRINE 8 MG/250ML KIT 250 ML IV SCH ×2 (06:45→13:22)
--- NOTE | 2019-11-07 07:28 | NUR ---
END OF SHIFT REPORT GIVEN TO DAY SHIFT RN. CARE ENDORSED.
[2019-11-07] MEDS: PANTOPRAZOLE 40 MG/10 ML VIAL INJ IV SCH (08:59)
[2019-11-07] MEDS: ENOXAPARIN SOD 40 MG/0.4 ML SYRINGE SC SCH (08:59)
[2019-11-07] MEDS: ASPirin 81 mg TAB PO SCH (09:00)
[2019-11-07] MEDS: LINEZOLID 600MG/300ML 300 ML IV SCH ×2 (09:00→21:59)
[2019-11-07] MEDS ORDERED: MICAFUNGIN SODIUM 100 MG in SODIUM CHL 0.9% 100 ML IV ONE (11:30)
[2019-11-07] MEDS ORDERED: SODIUM CHLORIDE 0.9% 1,000 ML IV ONE (12:45)
--- NOTE | 2019-11-07 14:00 | NUR ---
2 D ECHO BEING DONE AT THIS TIME. SEE REPORT.
[2019-11-07 14:38] LABS: BUN/Creatinine Ratio 23.3; Calcium 8.2 mg/dL (8.5-10.1); Potassium 3.9 mmol/L (3.5-5.1)
--- NOTE | 2019-11-07 15:35 | NUR ---
Nutrition Followup Note Wt 59.7 kg Pt is intubated and sedated in DADA. Pt with propofol running at 11.329 ml/hr providing 299 kcal from lipids. Pt is NPO with no diet order. Consider starting TF of Glucerna 1.2 at 40 ml/hr d/t to BAYRON, elevated RFTs if GI is accessible and per MD approval. Consider TPN if GI is not accessible Est energy needs 6565-6335 kcal (20-23 kcal/kg IBW 86.4kg) Est protein needs 86-94g (1-1.1g/kg IBW 86.4kg) will reassess prn. Labs: BUN 60H, Creat 2.58H, Alb 1.7L, Ca 8.2L BM: Pt with 1 BM 11/04 per Rn Skin: BS 11 high risk, full details in healthcare administrator note PES: Underwt r/t caloric intake less than needs aeb pt with a BMI of 17.1kg/m2 Inadequate oral intake r/t current medical condition aeb pt with NPO diet order Comments 1) Continue to monitor NPO status, labs, skin 2) refer pt to [facility]PD on DC 3) Continue current plan of care Consider Glucerna 1.2 at 40 ml/hr d/t to BAYRON per MD approval Consider Osmolite 1.2 at 65 ml/hr if pt BAYRON resolves per MD approval Expected Outcomes/Goals: 1) Consider alternate nutrition if pt NPO >48hrs 2) advance diet as medically feasible 3) f/u 2-3 days
--- NOTE | 2019-11-07 18:15 | NUR ---
RT NOTE RECEIVED PT INTUBATED AND ON VENT #ADQ 0167 ON STATED SETTINGS ON HEATED WIRE CIRCUIT. VENT IS PLUGGED TO RED OUTLET. ALARMS ARE ON AND AUDIBLE TO NURSING. AMBU BAG IS AT BEDSIDE AND CONNECTED TO O2 SOURCE. 8.0 ETT IS SECURED WITH ANCHORFAST AT 26 CM AT THE TEETH TO THE ORAL LEFT. BS ARE CTA. PT WAS SUCTIONED FOR SCANT RETURN FROM ETT AND LARGE RETURN ORALLY. CIRCUIT TEMP 33.9, WATER LEVEL IS ADEQUATE. CONT ORDERED. PT TEMP 97.7 POX 100% Addendum: 11/07/19 at 1934 by Adriana Fonseca RT Amended: Links added.
--- NOTE | 2019-11-07 20:15 | NUR ---
RT NOTE ROUTINE VENT CHECK DONE. PT INTUBATED AND ON VENT #ADQ 0167 ON STATED SETTINGS ON HEATED WIRE CIRCUIT. VENT IS PLUGGED TO RED OUTLET. ALARMS ARE ON AND AUDIBLE TO NURSING. AMBU BAG IS AT BEDSIDE AND CONNECTED TO O2 SOURCE. 8.0 ETT IS SECURED WITH ANCHORFAST AT 26 CM AT THE TEETH TO THE ORAL LEFT. CIRCUIT TEMP 33.9, WATER LEVEL IS ADEQUATE. CONT ORDERED.PT TEMP 97.6 POX 100% Addendum: 11/07/19 at 2050 by Adriana Fonseca RT Amended: Links added.
--- NOTE | 2019-11-07 20:15 | NUR ---
Patient bathe/linen change Patient given complete bath with chlorhexidine wipes. Skin integrity assessed for any changes. DTI and fluid filled blisters noted on sacrum.Linens changed. Patient repositioned for comfort.
[2019-11-07] MEDS: fentaNYL Drip 2500mCg/250mlNS 250 ML IV SCH (20:54)
[2019-11-07] MEDS: ATORVASTATIN 20 MG TAB PO SCH (21:59)
--- NOTE | 2019-11-07 22:00 | NUR ---
RT NOTE ROUTINE VENT CHECK DONE. PT INTUBATED AND ON VENT #ADQ 0167 ON STATED SETTINGS ON HEATED WIRE CIRCUIT. VENT IS PLUGGED TO RED OUTLET. ALARMS ARE ON AND AUDIBLE TO NURSING. AMBU BAG IS AT BEDSIDE AND CONNECTED TO O2 SOURCE. 8.0 ETT IS SECURED WITH ANCHORFAST AT 26 CM AT THE TEETH TO THE ORAL LEFT. CIRCUIT TEMP 34.0, WATER LEVEL IS ADEQUATE. CONT ORDERED.PT TEMP 97.3, POX 100% Addendum: 11/07/19 at 2254 by Adriana Fonseca RT Amended: Links added.
--- NOTE | 2019-11-07 23:00 | NUR ---
NEURO STATUS SEDATION VACATION WAS DONE TO CHECK NEURO STATUS. PATIENT DOESN'T OPEN EYES, WITHDRAWS TO PAINFUL STIMULI. HYPOACTIVE GAG AND COUGH. NO MOVEMENTS ON EXTREMITIES. PATIENT IS TACHYPNEIC IN 30'S SO DIPRIVAN RESTARTED.
[2019-11-08] VITALS (103 sets, daily range): BP systolic 99–153; BP diastolic 68–109
--- NOTE | 2019-11-08 00:14 | NUR ---
RT NOTE ROUTINE VENT CHECK DONE. PT INTUBATED AND ON VENT #ADQ 0167 ON STATED SETTINGS ON HEATED WIRE CIRCUIT. VENT IS PLUGGED TO RED OUTLET. ALARMS ARE ON AND AUDIBLE TO NURSING. AMBU BAG IS AT BEDSIDE AND CONNECTED TO O2 SOURCE. 8.0 ETT IS SECURED WITH ANCHORFAST AT 26 CM AT THE TEETH TO THE ORAL LEFT. CIRCUIT TEMP 34.1, WATER LEVEL IS ADEQUATE. CONT ORDERED. PT TEMP 97.7, POX 100% Addendum: 11/08/19 at 0037 by Adriana Fonseca RT Amended: Links added.
--- NOTE | 2019-11-08 02:04 | NUR ---
RT NOTE ROUTINE VENT CHECK DONE. PT INTUBATED AND ON VENT #ADQ 0167 ON STATED SETTINGS ON HEATED WIRE CIRCUIT. VENT IS PLUGGED TO RED OUTLET. ALARMS ARE ON AND AUDIBLE TO NURSING. AMBU BAG IS AT BEDSIDE AND CONNECTED TO O2 SOURCE. 8.0 ETT IS SECURED WITH ANCHORFAST AT 26 CM AT THE TEETH TO THE ORAL LEFT. CIRCUIT TEMP 34.0, WATER LEVEL IS ADEQUATE. CONT ORDERED. PT TEMP 98.1, POX 99% Addendum: 11/08/19 at 0225 by Adriana Fonseca RT Amended: Links added.
--- NOTE | 2019-11-08 04:06 | NUR ---
RT NOTE ROUTINE VENT CHECK DONE. PT INTUBATED AND ON VENT #[id number] ON STATED SETTINGS ON HEATED WIRE CIRCUIT. VENT IS PLUGGED TO RED OUTLET. ALARMS ARE ON AND AUDIBLE TO NURSING. AMBU BAG IS AT BEDSIDE AND CONNECTED TO O2 SOURCE. 8.0 ETT IS SECURED WITH ANCHORFAST AT 26 CM AT THE TEETH TO THE ORAL LEFT. CIRCUIT TEMP 34.0, WATER LEVEL IS ADEQUATE. CONT ORDERED.PT TEMP 99.1, POX 99% Addendum: 11/08/19 at 0432 by Adriana Fonseca RT Amended: Links added.
[2019-11-08] MEDS: PROPOFOL 100 ML IV SCH ×3 (05:18→18:56)
[2019-11-08] MEDS: CEFEPIME 1 GM in SODIUM CHL 0.9% 50 ML IV SCH ×3 (06:10→22:06)
[2019-11-08 06:22] LABS: Basophils # (auto) 0 10 ^3/uL (0-0.2); Eosinophils # (auto) 0 10 ^3/uL (0-0.8); Eosinophils % (auto) 0.6 % (0.0-7.0); Hemoglobin 10.5 g/dL (13.5-17.5); Lymphocytes # (auto) 0.6 10 ^3/uL (0.4-5.4); Mean Corpuscular Hgb Conc. 31.7 g/dL (32.0-36.0); Red Blood Cells 4.15 10^6/uL (4.5-5.90)
[2019-11-08 06:24] LABS: Basophils % (auto) 0.9 % (0.0-2.0); Lymphocytes % (auto) 10.4 % (10.0-50.0); Mean Corpuscular Hemoglobin 25.2 pg (28.0-32.0); Mean Corpuscular Volume 79.3 fL (80.0-100.0); Monocytes # (auto) 0.1 10 ^3/uL (0-1.3); Neutrophils # (auto) 4.9 10 ^3/uL (1.6-8.6); Neutrophils % (auto) 86.1 % (37.0-80.0); Nucleated Red Blood Cells % 0.1 %; Platelet Count (auto) 236 10^3/uL (140-450); Red Cell Distribution Width 16.6 % (11.8-14.3); White Blood Cell 5.7 10^3/uL (4.4-10.8)
[2019-11-08 06:42] LABS: Potassium 3.5 mmol/L (3.5-5.1)
[2019-11-08 06:45] LABS: BUN/Creatinine Ratio 31.1; Calcium 8.2 mg/dL (8.5-10.1)
--- NOTE | 2019-11-08 07:30 | NUR ---
Opening Shift Note Assumed care of patient, ET to [facility] vent, sedated. No S/S of distress/SOB or pain. NGT clamped. See interventions for complete assessment. Bed locked on low position, side rails up x2, bed alarms on at all times, will continue to monitor for changes Q1hr and PRN.
[2019-11-08] MEDS: LINEZOLID 600MG/300ML 300 ML IV SCH ×2 (09:49→22:06)
[2019-11-08] MEDS: MICAFUNGIN SODIUM 100 MG in SODIUM CHL 0.9% 100 ML IV SCH (09:49)
[2019-11-08] MEDS: SODIUM CHLORIDE 0.9% 1,000 ML IV SCH ×2 (09:50→17:46)
[2019-11-08] MEDS: ENOXAPARIN SOD 40 MG/0.4 ML SYRINGE SC SCH (09:51)
[2019-11-08] MEDS: ASPirin 81 mg TAB PO SCH (09:51)
[2019-11-08] MEDS: PANTOPRAZOLE 40 MG/10 ML VIAL INJ IV SCH (09:51)
--- NOTE | 2019-11-08 10:19 | NUR ---
Dr Loredo at bedside, updated on patient's status. Patient seen and examined. Will carry out new orders.
--- NOTE | 2019-11-08 11:55 | NUR ---
high heel builder Nadine at bedside.
--- NOTE | 2019-11-08 12:00 | NUR ---
WOUND CARE NOTE: IN TO SEE PATIENT AT THIS TIME D/T NEW WOUND CONCERN. PATIENT NOTED TO HAVE SKIN INTEGRITY ISSUES UPON ASSESSMENT, WOUND PHOTOS TAKEN FOR REFERENCE, WOUND CONSULT ORDERED. PATIENT IN DADA, COVID NEGATIVE, INTUBATED, SEDATED, SHAYNA SCORE IS 10. PATIENT PRESENTED TO ER AFTER [facility] STAFF CALLED FOR AMBULANCE D/T PATIENT'S WEAKENED STATE. HE WAS SOB WITH COUGH AT THAT TIME FOR SEVERAL DAYS. HE HAS MULTIPLE CO-MORBIDITIES, INCLUDING: DRUG ABUSE, CAD, CHF, COPD, ELEVATED LIPIDS, HTN, WI. PATIENT ADMITTED TO [facility] WITH DIAGNOSIS OF ACUTE INTERSTITIAL BILATERAL PNA. PATIENT IS NOTED TO HAVE WHAT APPEARS TO BE A BLISTER THAT OPENED, AND SCABBED CLOSED TO THE PENIS. EPIDERMAL SKIN REMOVED. WOUND BED WITH BROWN ESCHAR SCAB. LEFT OPEN TO AIR. HE IS ALSO NOTED TO HAVE A LARGE DTI WITH SERUM FILLED BLISTER AND OPEN PARTIAL THICKNESS BLISTER TO SACRUM. NEW WOUND PHOTOS TAKEN AT THIS TIME FOR REFERENCE. SACRAL SKIN IS DARK PURPLE. APPLIED ZGUARD, OPTIFOAM GENTLE SACRAL DRESSING TO SACRUM. ADVISED BEDSIDE NURSE TO PROVIDE SIDE TO SIDE POSITIONING ONLY, AVOIDING SUPINE. ORDERED SPECIALTY AIR BED, PATIENT TO BE PLACED, PENDING DELIVERY BY RENE SKAGGS. NO OTHER SKIN INTEGRITY ISSUES NOTED AT THIS TIME. RECOMMEND: FREQUENT TURN SCHEDULE Q 2 HOURS, PRN CONDITION PERMITS, WITH PRESSURE REDISTRIBUTION USING PILLOWS/WEDGES, SIDE TO SIDE POSITIONING ONLY, AVOIDING SUPINE POSITION, SPECIALTY AIR BED, BID/PRN APPLICATION WITH ZGUARD, OPTIFOAM GENTLE SACRAL DRESSING, DIETARY CONSULT, SKIN/WOUND CARE PLAN, CONTINUED MONITORING BY WOUND CARE TEAM. Addendum: 11/08/19 at 1628 by Roshni Ovalle RN Amended: Links added.
--- NOTE | 2019-11-08 12:00 | NUR ---
Dr Jean at bedside, updated on patient's status. Patient seen and examined. Will hold off of tube feeding. Will CPAP patient today. Sedation turned off. Will continue to monitor patient.
--- NOTE | 2019-11-08 15:00 | NUR ---
Sedation off, plan to CPAP patient. Awaiting for patient to wake up.
--- NOTE | 2019-11-08 19:55 | NUR ---
SPECIALTY AIR BED PATIENT IS PLACED ON SPECIALTY AIR BED, VINELAND ROM.
[2019-11-08] MEDS: fentaNYL Drip 2500mCg/250mlNS 250 ML IV SCH (20:54)
--- NOTE | 2019-11-08 22:00 | NUR ---
Patient bathe/linen change Patient given complete bath with chlorhexidine wipes. Skin integrity assessed for any changes. Linens changed. Patient repositioned for comfort.
[2019-11-08] MEDS: ATORVASTATIN 20 MG TAB PO SCH (22:05)
[2019-11-08] MEDS: MIDAZOLAM DRIP 50 mg/50mL 50 ML IV SCH (23:10)
[2019-11-09] VITALS (104 sets, daily range): BP systolic 78–162; BP diastolic 54–113
[2019-11-09 04:05] LABS: Basophils # (auto) 0 10 ^3/uL (0-0.2); Basophils % (auto) 0.7 % (0.0-2.0); Eosinophils # (auto) 0 10 ^3/uL (0-0.8); Eosinophils % (auto) 0.7 % (0.0-7.0); Hematocrit 35.9 % (41.0-53.0); Hemoglobin 11.1 g/dL (13.5-17.5); Lymphocytes # (auto) 0.7 10 ^3/uL (0.4-5.4); Lymphocytes % (auto) 13.8 % (10.0-50.0); Mean Corpuscular Hemoglobin 24.6 pg (28.0-32.0); Mean Corpuscular Hgb Conc. 30.9 g/dL (32.0-36.0); Mean Corpuscular Volume 79.8 fL (80.0-100.0); Monocytes # (auto) 0.1 10 ^3/uL (0-1.3); Monocytes % (auto) 2.5 % (0.0-12.0); Neutrophils # (auto) 4.3 10 ^3/uL (1.6-8.6); Neutrophils % (auto) 82.3 % (37.0-80.0); Nucleated Red Blood Cells % 0.1 %; Platelet Count (auto) 218 10^3/uL (140-450); Red Cell Distribution Width 16.9 % (11.8-14.3); White Blood Cell 5.2 10^3/uL (4.4-10.8)
[2019-11-09 04:26] LABS: Calcium 8.5 mg/dL (8.5-10.1); Potassium 3.5 mmol/L (3.5-5.1)
[2019-11-09 04:29] LABS: BUN/Creatinine Ratio 40.1
[2019-11-09 04:32] LABS: Lactic Acid w/Reflex 2.4 mmol/L (0.4-2.0)
[2019-11-09] MEDS: CEFEPIME 1 GM in SODIUM CHL 0.9% 50 ML IV SCH ×3 (05:52→22:00)
[2019-11-09] MEDS: SODIUM CHLORIDE 0.9% 1,000 ML IV SCH ×2 (05:53→14:59)
--- NOTE | 2019-11-09 06:00 | NUR ---
SEDATION TURNED OFF FOR POSSIBLE CPAP TRIAL.
[2019-11-09] MEDS: NOREPINEPHRINE 8 MG/250ML KIT 250 ML IV SCH (06:45)
--- NOTE | 2019-11-09 07:15 | NUR ---
Assumed care of pt., report received per WILLIAM Duong. No distress noted, pt. is intubated and vented, reading sinus tachycardia 1teens, will cont.to monitor for any changes, assessment ongoing.
--- NOTE | 2019-11-09 09:25 | NUR ---
Respiratory note: Called Dr. Jean to clarify vent setting orders, confirmed order for VT 500 ml. Updated MD on pt's status: Pt is off sedation, with increased HR 113, RR 38, BP 149/104, still not waking or following commands. Per MD, will not proceed with CPAP trial today due to pt not tolerating sedation vacation, ok to resedate pt. Notified WILLIAM Burrows. Adjusted VT on ventilator, pt tolerating changes. Will continue to monitor.
--- NOTE | 2019-11-09 09:45 | NUR ---
pt. noted off sedation since 6am for CPAP trials, pt. noted to have increasing work of breath, tachycardia 120's, increasing B/P, MD aware, orders to re-sedated and return to vent mode, will cont.to monitor for any changes, assessment ongoing.
[2019-11-09] MEDS: fentaNYL Drip 2500mCg/250mlNS 250 ML IV SCH ×2 (10:17→23:12)
[2019-11-09] MEDS: PROPOFOL 100 ML IV SCH ×5 (10:18→23:39)
[2019-11-09] MEDS: MICAFUNGIN SODIUM 100 MG in SODIUM CHL 0.9% 100 ML IV SCH (10:26)
[2019-11-09] MEDS: PANTOPRAZOLE 40 MG/10 ML VIAL INJ IV SCH (10:26)
[2019-11-09] MEDS: LINEZOLID 600MG/300ML 300 ML IV SCH ×2 (10:27→22:00)
[2019-11-09] MEDS: ENOXAPARIN SOD 40 MG/0.4 ML SYRINGE SC SCH (10:28)
[2019-11-09] MEDS: ASPirin 81 mg TAB PO SCH (10:28)
[2019-11-09 11:46] LABS: Hepatitis A Ab IgM Negative; Hepatitis B Core IgM Negative; Hepatitis B Surface Antigen Negative (Negative)
[2019-11-09 11:48] LABS: Hepatitis C Antibody Positive (Negative)
[2019-11-09] MEDS: MIDAZOLAM DRIP 50 mg/50mL 50 ML IV SCH ×2 (12:06→17:47)
--- NOTE | 2019-11-09 14:27 | NUR ---
Nutrition Followup Note Wt 56.9 kg Pt is intubated and sedated in DADA. Pt with propofol running at 8.0 ml/hr providing 211 kcal from lipids. Pt is NPO since 11/04 with no diet order yet. Consider starting TF of Glucerna 1.2 at 40 ml/hr (65 ml/hr goal rate without propofol on board) d/t to BAYRON, elevated RFTs if GI is accessible and per MD approval. Consider TPN if GI is not accessible Est energy needs 0605-2978 kcal (20-23 kcal/kg IBW 86.4kg) Est protein needs 86-94g (1-1.1g/kg IBW 86.4kg) will reassess prn. Labs: BUN 79H, Creat 1.97H, GFR 37 L, Alb 1.7L, Ca 8.2L BM: Pt with no BM today per RN Skin: BS 10 high risk, full details in palliative care nurse practitioner note PES: 1) Underweight r/t caloric intake less than needs aeb pt with a BMI of 17.1kg/m2 2) Inadequate oral intake r/t current medical condition aeb pt with NPO diet order Comments 1) Continue to monitor NPO status, labs, skin 2) refer pt to [facility] on DC 3) Continue current plan of care Consider Glucerna 1.2 at 40 ml/hr d/t to BAYRON per MD approval Consider Osmolite 1.2 at 65 ml/hr if pt BAYRON resolves per MD approval
[2019-11-09] MEDS ORDERED: Glucerna 1.2 Cal 1Liter BOTTLE GT SCH (15:30)
--- NOTE | 2019-11-09 19:40 | NUR ---
Will cont.to assess for pt. individual needs and will adjust care plan accordingly, assessment is ongoing.
[2019-11-09] MEDS: ATORVASTATIN 20 MG TAB PO SCH (22:00)
[2019-11-10] VITALS (75 sets, daily range): BP systolic 70–163; BP diastolic 49–113
[2019-11-10] MEDS: SODIUM CHLORIDE 0.9% 1,000 ML IV SCH ×2 (01:00→10:06)
[2019-11-10 03:58] LABS: Basophils # (auto) 0.1 10 ^3/uL (0-0.2); Basophils % (auto) 2.4 % (0.0-2.0); Eosinophils # (auto) 0.1 10 ^3/uL (0-0.8); Eosinophils % (auto) 1.1 % (0.0-7.0); Hematocrit 35.8 % (41.0-53.0); Hemoglobin 10.8 g/dL (13.5-17.5); Lymphocytes # (auto) 0.8 10 ^3/uL (0.4-5.4); Lymphocytes % (auto) 14.4 % (10.0-50.0); Mean Corpuscular Hemoglobin 25.1 pg (28.0-32.0); Mean Corpuscular Hgb Conc. 30.3 g/dL (32.0-36.0); Mean Corpuscular Volume 82.8 fL (80.0-100.0); Monocytes # (auto) 0.1 10 ^3/uL (0-1.3); Monocytes % (auto) 2.3 % (0.0-12.0); Neutrophils # (auto) 4.6 10 ^3/uL (1.6-8.6); Neutrophils % (auto) 79.8 % (37.0-80.0); Nucleated Red Blood Cells % 0.7 %; Platelet Count (auto) 165 10^3/uL (140-450); Red Blood Cells 4.32 10^6/uL (4.5-5.90); White Blood Cell 5.8 10^3/uL (4.4-10.8)
[2019-11-10 04:14] LABS: Calcium 8.3 mg/dL (8.5-10.1); Potassium 4.1 mmol/L (3.5-5.1)
[2019-11-10 04:16] LABS: BUN/Creatinine Ratio 41.6
[2019-11-10] MEDS: PROPOFOL 100 ML IV SCH ×2 (05:16→16:00)
[2019-11-10] MEDS: CEFEPIME 1 GM in SODIUM CHL 0.9% 50 ML IV SCH ×3 (05:17→22:00)
--- NOTE | 2019-11-10 06:25 | NUR ---
Paged hospitalist to report ABG critical values. Awaiting call back.
--- NOTE | 2019-11-10 06:35 | NUR ---
Spoke with HAMZAH Zaman and reported ABG results. Orders received to increase RR to 16. Orders read back and verified. Notified RT Riri.
[2019-11-10] MEDS: NOREPINEPHRINE 8 MG/250ML KIT 250 ML IV SCH (08:18)
--- NOTE | 2019-11-10 08:45 | NUR ---
CONTACT PULMONOLOGY REGARDING MORNING ABG AND CPAP ATTEMPT. DR NGUYEN NOTED ORDERS WERE PROVIDED TO INCREASE RATE AT 0700 AND ABG ONE HOUR AFTER. REGARDING CPAP, DR NGUYEN WANTED TO SEE WHAT REPEAT ABG RESULTS.
[2019-11-10] MEDS: PANTOPRAZOLE 40 MG/10 ML VIAL INJ IV SCH (09:59)
[2019-11-10] MEDS: MICAFUNGIN SODIUM 100 MG in SODIUM CHL 0.9% 100 ML IV SCH (10:01)
[2019-11-10] MEDS: ENOXAPARIN SOD 40 MG/0.4 ML SYRINGE SC SCH (10:01)
[2019-11-10] MEDS: ASPirin 81 mg TAB PO SCH (10:01)
--- NOTE | 2019-11-10 10:45 | NUR ---
CALL RECEIVED FROM SYDNEE TRAIN DRIVER EFRAIN REQUESTING TO SPEAK WITH PATIENT. EFRAIN UNAWARE THAT PATIENT WAS INTUBATED AND VERBALIZED UNDERSTANDING. EFRAIN WILL FOLLOW UP ON PATIENT'S CONDITION AT A LATER DATE.
[2019-11-10] MEDS: LINEZOLID 600MG/300ML 300 ML IV SCH ×2 (11:10→22:14)
--- NOTE | 2019-11-10 13:17 | NUR ---
CONTACT DIETARY PER DR NGUYEN REGARDING ENTERAL FEEDING ORDERED, MESSAGE LEFT FOR IRON LAUNDER OPERATOR, AWAITING RESPONSE. GLUCERNA - PATIENT NOT DIABETIC OSMOLITE - PATIENT BAYRON
--- NOTE | 2019-11-10 13:33 | NUR ---
Family updated on pt status Family of SEANTYRESE updated on patient's status and condition after password verification. All questions and concerns addressed. Patient's mother Cecile verbalized understanding.
--- NOTE | 2019-11-10 14:40 | NUR ---
SPOKE WITH [employer] ARCHITECT ELIEL PHAN REGARDING DIETARY RECOMMENDATIONS - ELIEL STATED SHE WOULD FOR VITAL AF AND CALL BACK. CALL RECEIVED AND WILL MAKE CHANGES WITH A GOAL RATE OF 65 MLS/HR LONG PATIENT OFF PROPOFOL.
[2019-11-10] MEDS: D5W/SOD CHL 0.45% 1,000 ML IV SCH (14:45)
[2019-11-10] MEDS ORDERED: Vital AF 1.2 Cal 1 liter bottle GT SCH ×2 (14:45→18:30)
--- NOTE | 2019-11-10 14:47 | NUR ---
PATIENT OFF FLOOR TO RADIOLOGY FOR ORDERED HEAD CT. NO DISTRESS NOTED - OFF SEDATION. WILL CONTINUE TO MONITOR UPON RETURN TO FLOOR.
--- NOTE | 2019-11-10 14:54 | NUR ---
ATTEMPTED TO TRANSPORT PT TO CT. PT DESATURATED TO 80%. PT UNSTABLE AT THIS TIME. DEAN THOMAS AWARE
--- NOTE | 2019-11-10 14:57 | NUR ---
PATIENT RETURN TO FLOOR UNSTABLE/SPOKE TO HOSPITALIST PATIENT WAS IMMEDIATELY RETURNED SATURATING IN THE 80'S WITH NEED TO INCREASED FIO2 TO 50%. PATIENT INCREASED RESPIRATIONS AND NOTICED INCREASED WORK OF BREATHING. PATIENT CONNECTED BACK TO BEDSIDE MONITOR AND INCREASED SEDATION. DR NGUYEN NOTIFIED AND VERBALIZED UNDERSTANDING.
[2019-11-10] MEDS: ATORVASTATIN 20 MG TAB PO SCH (22:14)
[2019-11-10] MEDS: MIDAZOLAM DRIP 50 mg/50mL 50 ML IV SCH (23:10)
[2019-11-11] VITALS (100 sets, daily range): BP systolic 92–139; BP diastolic 53–98
--- NOTE | 2019-11-11 02:00 | NUR ---
Hypothermia Temp 95.7 F, Aleyda gonzalez
--- NOTE | 2019-11-11 04:32 | NUR ---
Patient bathe/linen change Patient given complete bath. Skin integrity assessed for any changes. Linens and gown changed. Cleansed sacral area and optifoam changed. Patient repositioned for comfort.
[2019-11-11 04:38] LABS: Eosinophils # (auto) 0 10 ^3/uL (0-0.8); Hemoglobin 11.4 g/dL (13.5-17.5); Lymphocytes # (auto) 0.5 10 ^3/uL (0.4-5.4); Mean Corpuscular Hemoglobin 24.8 pg (28.0-32.0); Monocytes # (auto) 0.1 10 ^3/uL (0-1.3); Neutrophils # (auto) 5.8 10 ^3/uL (1.6-8.6); Red Blood Cells 4.59 10^6/uL (4.5-5.90); White Blood Cell 6.5 10^3/uL (4.4-10.8)
[2019-11-11 04:40] LABS: Basophils # (auto) 0.1 10 ^3/uL (0-0.2); Basophils % (auto) 0.8 % (0.0-2.0); Eosinophils % (auto) 0.4 % (0.0-7.0); Hematocrit 37.9 % (41.0-53.0); Lymphocytes % (auto) 8.3 % (10.0-50.0); Mean Corpuscular Volume 82.5 fL (80.0-100.0); Monocytes % (auto) 1.6 % (0.0-12.0); Neutrophils % (auto) 88.9 % (37.0-80.0); Nucleated Red Blood Cells % 0.3 %; Platelet Count (auto) 125 10^3/uL (140-450); Red Cell Distribution Width 17.9 % (11.8-14.3)
[2019-11-11 05:00] LABS: BUN/Creatinine Ratio 43.7; Calcium 8.8 mg/dL (8.5-10.1); Potassium 4.2 mmol/L (3.5-5.1)
--- NOTE | 2019-11-11 05:00 | NUR ---
Off maximiliano robertson, temp 98.2
[2019-11-11] MEDS: NOREPINEPHRINE 8 MG/250ML KIT 250 ML IV SCH (06:45)
[2019-11-11] MEDS: CEFEPIME 1 GM in SODIUM CHL 0.9% 50 ML IV SCH ×3 (07:01→21:00)
--- NOTE | 2019-11-11 07:30 | NUR ---
Opening Shift Note Assumed care of patient, ET to [facility] vent, sedated. No S/S of distress/SOB or pain. See interventions for complete assessment. Bed locked on low position, side rails up x2, bed alarms on at all times, will continue to monitor for changes Q1hr and PRN.
[2019-11-11] MEDS: D5W/SOD CHL 0.45% 1,000 ML IV SCH ×2 (08:14→10:58)
[2019-11-11] MEDS: LINEZOLID 600MG/300ML 300 ML IV SCH ×2 (09:35→22:35)
[2019-11-11] MEDS: PANTOPRAZOLE 40 MG/10 ML VIAL INJ IV SCH (09:36)
[2019-11-11] MEDS: ENOXAPARIN SOD 40 MG/0.4 ML SYRINGE SC SCH (09:36)
[2019-11-11] MEDS: ASPirin 81 mg TAB PO SCH (09:36)
[2019-11-11] MEDS: MICAFUNGIN SODIUM 100 MG in SODIUM CHL 0.9% 100 ML IV SCH (09:36)
--- NOTE | 2019-11-11 10:00 | NUR ---
RT Transport Note: Patient transported to CT with RN. Patient transported to and from procedure on ventilator with previous ordered settings. Patient on color television console monitor with alarms set and audible, ambu-bag/mask connected to 02 tank. Patient returned to room with no adverse reaction noted. Transport completed without incident.
--- NOTE | 2019-11-11 10:03 | NUR ---
Patient out of room to CT.
--- NOTE | 2019-11-11 10:20 | NUR ---
Patient back to room from head CT.
--- NOTE | 2019-11-11 10:41 | NUR ---
Nutrition Followup Note Wt 56.9 kg Pt is intubated and sedated in DADA. Pt with propofol running at 4.80 ml/hr providing 126 kcal from lipids. per RN pt was with low blood glu and hence Glucerna was not helping pt. per RN pt with BAYRON no HD. RN informed of new diet rec per MD approval. pt was off the floor this am and NPO with no EN support yet Est energy needs 3336-5107 kcal (20-23 kcal/kg IBW 86.4kg), Est protein needs 86-94g (1-1.1g/kg IBW 86.4kg). will reassess prn. Labs: BUN 93 H, CREAT 2.13 H BM: Pt with no BM today per RN Skin: BS 10 high risk, full details in md do resident urgent care note PES: 1) Underweight r/t caloric intake less than needs aeb pt with a BMI of 17.1kg/m2 2) Inadequate oral intake r/t current medical condition aeb pt with NPO diet order Comments: Continue to monitor NPO status, labs, skin status. F/u high 2-3 days Rec: 1) Consider Vital AF 1.2 @ 60 ml/hr if pt ff prpofol per MD approval. 2) advance diet as medically feasible. 3) continue current plan of care
--- NOTE | 2019-11-11 10:54 | NUR ---
Dr Askew at bedside, updated on patient's status. Patient seen and examined. Will carry out new orders.
--- NOTE | 2019-11-11 10:59 | NUR ---
Paged Dr Patten regarding CT scan report. Awaiting call back.
--- NOTE | 2019-11-11 11:30 | NUR ---
Re-paged Dr Patten, awaiting call back.
--- NOTE | 2019-11-11 11:31 | NUR ---
Received call from Dr Patten regarding patient's CT scan report, states "I'll look it up in the computer."
--- NOTE | 2019-11-11 12:00 | NUR ---
Received call from patient's mother Cecile who's able to provide password. Updated on patient's status and POC, verbalized understanding. All questions and concerns addressed.
--- NOTE | 2019-11-11 12:35 | NUR ---
Dr Patten at bedside, updated on patient's status. Informed of CT scan report. Patient seen and examined. Plan to CPAP patient today. Sedation turned off.
--- NOTE | 2019-11-11 15:05 | NUR ---
Dr Durham at bedside, updated on patient's status. Patient seen and examined. Will carry out new orders.
--- NOTE | 2019-11-11 19:00 | NUR ---
Opening notes Assumed care, still on vent, sedation with fentanyl @ 50 mcg/min, propofol @ 10 mcg/min, pupils unequal, clear breath sounds noted, afebrile, noted sinus rhythm in the 90's, NGT and valentine catheter in place, SCDs on bilateral lower extremities, right IJ central line patent and intact. Bed in lowest position with side rails up, bed alarm on. Will continue care.
--- NOTE | 2019-11-11 19:45 | NUR ---
Increased sedation Sinus tach low 100's, tachypnea 34-37 noted, sedation with propofol and fentanyl increased. See spreadsheet for titration
[2019-11-11] MEDS: fentaNYL Drip 2500mCg/250mlNS 250 ML IV SCH (21:30)
[2019-11-11] MEDS: ATORVASTATIN 20 MG TAB PO SCH (22:35)
[2019-11-12] VITALS (13 sets, daily range): BP systolic 29–178; BP diastolic 14–124
--- NOTE | 2019-11-12 00:28 | NUR ---
Lupe Cota RT @ bedside calling for help, RN assessed pt, VS unstable, HR high 20's, BP not appreciated on the monitor and desaturation noted, called lupe castelan see lupe castelan notes for report
--- NOTE | 2019-11-12 00:41 | NUR ---
Family update Called family and spoke with Radha, updated on pt's status re:the code, she said she will inform her mom and ask if they can come in to the hospital, RN said to limit the members who will come. Verbalized understanding
[2019-11-12] MEDS ORDERED: LIDOCAINE 4MG/ML IV SOLN 500 ML IV SCH (01:00)
--- NOTE | 2019-11-12 01:01 | NUR ---
Levophed restarted @ 10 mcg/min, BP 46/25, 37/20, will titrate accordingly
[2019-11-12] MEDS ORDERED: LIDOCAINE 4MG/ML IV SOLN 500 ML IV ONE (01:08)
[2019-11-12] MEDS ORDERED: EPINEPHrine HCL 1 MG/10 ML SYRG ONE (01:12)
[2019-11-12 01:17] LABS: Hemoglobin 11.7 g/dL (13.5-17.5); White Blood Cell 9.2 10^3/uL (4.4-10.8)
[2019-11-12 01:19] LABS: Hematocrit 41.1 % (41.0-53.0); Mean Corpuscular Hemoglobin 24.8 pg (28.0-32.0); Mean Corpuscular Hgb Conc. 28.4 g/dL (32.0-36.0); Mean Corpuscular Volume 87.4 fL (80.0-100.0); Platelet Count (auto) 124 10^3/uL (140-450)
[2019-11-12 01:21] LABS: Band Neutrophils % (manual) 0; Basophils % (manual) 0 (0.0-2.0); Blast Cells 0; Eosinophils % (manual) 0 (0-7); Metamyelocytes % 0; Myelocytes % 0; Promyelocytes % 0; Reactive Lymphocytes 0
--- NOTE | 2019-11-12 01:29 | NUR ---
2nd code...see notes for code blue
[2019-11-12 01:35] LABS: Albumin 1.4 g/dL (3.4-5.0); Calcium 8.6 mg/dL (8.5-10.1); Magnesium 3.3 mg/dL (1.6-2.6); Potassium 5.1 mmol/L (3.5-5.1)
[2019-11-12 01:38] LABS: BUN/Creatinine Ratio 40.8
[2019-11-12 01:42] LABS: Bilirubin, Total 0.4 mg/dL (0.2-1.0); Phosphorus 8.7 mg/dL (2.5-4.90); Total Protein 5.8 g/dL (6.4-8.2)
--- NOTE | 2019-11-12 01:55 | NUR ---
This RN and hotel housekeeper "Marlena" were present during patient's code. Patient's mother is present at patient's bedside and has decided to make patient a "DNR" due to patients poor prognosis, multiple codes and critical condition. DNR was explained to family and family verbalized understanding and wanted to proceed with DNR status.
[2019-11-12 02:28] LABS: Lymphocytes % (manual) 23 (10.0-50.0); Monocytes % (manual) 1 (0-12)
[2019-11-12] MEDS ORDERED: EPINEPHrine HCL 1 MG/10 ML SYRG IV ONE (03:41)
--- NOTE | 2019-11-12 03:42 | NUR ---
BP NOT APPRECIATED, NO PULSE, NO RESP,SATS 0%. ECG STRIP ATTACHED TO CHART. HOSPITALIST INFORMED
--- NOTE | 2019-11-12 03:55 | NUR ---
Called Dr. Lopez and notified of pt's time of , verbalized he will come later to pronounce
--- NOTE | 2019-11-12 04:10 | NUR ---
[facility] and spoke with Verito re: pt's , information given, per Verito, pt is not eligible for donation d/t Hepatitis C and can be released w/ referral no. [id number]
--- NOTE | 2019-11-12 04:17 | NUR ---
Called [facility] and spoke w/ Izabel to report pt's
--- NOTE | 2019-11-12 04:25 | NUR ---
Called the family and spoke with Radha informing her the the pt already . She said she will just inform her mom
--- NOTE | 2019-11-12 04:28 | NUR ---
Called the [employer] [facility] and spoke with Wesly Maciel informing the RN it's ok to release the body to the [facility] [place]
--- NOTE | 2019-11-12 04:52 | NUR ---
DISCONTINUED MECH VENTILATION, DR PORTER PRONOUNCED PT AT 04:40
--- NOTE | 2019-11-12 05:10 | NUR ---
Dr. Lopez came to pronounce pt's
--- NOTE | 2019-11-12 05:20 | NUR ---
POST-MORTEM CARE DONE, PROPER ID ATTACHED
--- NOTE | 2019-11-12 06:11 | NUR ---
Body released to the [facility], accompanied by watchguard and Jeremy VELEZ, pt's family, made aware
== END 2019-11-12 03:42 | disposition expired | DRG 720 ==
LOC: ER 12:44 → EDBD 12:44 → TELE 12:45 → TELE-EAST 22:52 → DOU IN ICU 23:35 → TELE-WESTW 11-05 22:30 → DOU IN ICU 11-05 22:52
PROVIDERS: ADMIT Hospitalist; ATTEND Internal Medicine Pulmonary Disease
PROC: 5A1955Z Respiratory Ventilation, Greater than 96 Consecutive Hours (ICD-10-PCS; principal; 2019-11-05)
PROC: 0BH17EZ Insertion of Endotracheal Airway into Trachea, Via Natural or Artificial Opening (ICD-10-PCS; 2019-11-05)
PROC: 02HV33Z Insertion of Infusion Device into Superior Vena Cava, Percutaneous Approach (ICD-10-PCS; 2019-11-06)
PROC: 5A12012 Performance of Cardiac Output, Single, Manual (ICD-10-PCS; 2019-11-12)
DX: A41.9 Sepsis, unspecified organism (principal); J96.01 Acute respiratory failure with hypoxia; E43 Unspecified severe protein-calorie malnutrition; I50.23 Acute on chronic systolic (congestive) heart failure; I63.81 Other cerebral infarction due to occlusion or stenosis of small artery; J84.9 Interstitial pulmonary disease, unspecified; J44.0 Chronic obstructive pulmonary disease with (acute) lower respiratory infection; N17.0 Acute kidney failure with tubular necrosis; E16.2 Hypoglycemia, unspecified; I11.0 Hypertensive heart disease with heart failure; B49 Unspecified mycosis; I25.5 Ischemic cardiomyopathy; B19.20 Unspecified viral hepatitis C without hepatic coma; E78.5 Hyperlipidemia, unspecified; E87.2 Acidosis; F11.90 Opioid use, unspecified, uncomplicated; I50.82 Biventricular heart failure; F12.90 Cannabis use, unspecified, uncomplicated; F17.210 Nicotine dependence, cigarettes, uncomplicated; I25.10 Atherosclerotic heart disease of native coronary artery without angina pectoris; I46.9 Cardiac arrest, cause unspecified; Z20.828 Contact with and (suspected) exposure to other viral communicable diseases; Z79.899 Other long term (current) drug therapy; I25.2 Old myocardial infarction; Z79.82 Long term (current) use of aspirin; R65.21 Severe sepsis with septic shock; Z82.49 Family history of ischemic heart disease and other diseases of the circulatory system; Z86.73 Personal history of transient ischemic attack (TIA), and cerebral infarction without residual deficits; Z91.19 Patient's noncompliance with other medical treatment and regimen; Z98.61 Coronary angioplasty status; Z99.11 Dependence on respirator [ventilator] status; Z68.22 Body mass index [BMI] 22.0-22.9, adult
CPT/HCPCS: 36415; 36600; 70450; 71045; 76775; 80048; 80053; 80074; 80170; 80307; 81001; 82728; 82805; 82962; 83605; 83615; 83735; 83880; 84100; 84484; 85007; 85025; 85027; 85652; 86141; 86701; 86703; 87040; 87070; 87081; 87086; 87088; 87205; 92950; 93005; 93306; 94002; 94003; 94640; 96361; 96365; 96366; 96367; 96375; C9113; G0378; J0330; J2248; J2250; J2405; J2704; J3480; J7060